=== PATIENT | male | born 1945 | race Caucasian/White ===

== ENCOUNTER 2022-12-19 14:54 | Outpatient (CLI) | payer MEDICARE, SELFPAY | END 2022-12-19 14:55 | disposition home or self-care (01) | PROVIDERS: Visit Provider Nurse Practitioner | DX: C61 Malignant neoplasm of prostate (principal) | CPT/HCPCS: 72195 ==

== ENCOUNTER 2024-12-03 17:12 | Emergency (ER) | payer MEDICARE, SELFPAY ==
[2024-12-03 17:34] VITALS: BP 139/78; PULSE 76; RESP 16; TEMP 37.3; O2SAT 95; BMI 23.7
[2024-12-03 19:25] VITALS: BP 145/81; PULSE 80; RESP 18; TEMP 37.1; O2SAT 92
--- OUTSIDE RECORDS SUMMARY | 2024-12-03 19:29 | XMS_ITS | Clinical Summary ---
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 INFORMATION SYSTEMS AUDITOR [facility] % Basophils 1 % 09/29/2024 7:06 AM INFORMATION SYSTEMS AUDITOR [facility] % Immature Granulocytes 0 % 09/29/2024 7:06 AM INFORMATION SYSTEMS AUDITOR [facility] NRBCs per 100 WBC 0 <1 /100 024 7:06 AM INFORMATION SYSTEMS AUDITOR [facility] Absolute Neutrophils 4.3 1.6 - 8.3 10e3/uL 09/29/2024 7:06 AM INFORMATION SYSTEMS AUDITOR [facility] Absolute Lymphocytes 1.0 0.8 - 5.3 10e3/uL 09/29/2024 7:06 AM INFORMATION SYSTEMS AUDITOR [facility] Absolute Monocytes 0.7 0.0 - 1.3 10e3/uL 09/29/2024 7:06 AM INFORMATION SYSTEMS AUDITOR [facility] Absolute Eosinophils 0.6 0.0 - 0.7 10e3/uL 09/29/2024 7:06 AM INFORMATION SYSTEMS AUDITOR [facility] Absolute Basophils 0.1 0.0 - 0.2 10e3/uL 09/29/2024 7:06 AM INFORMATION SYSTEMS AUDITOR [facility] Absolute Immature Granulocytes 0.0 <=0.4 10e3/uL 09/29/2024 7:06 AM INFORMATION SYSTEMS AUDITOR [facility] Absolute NRBCs 0.0 10e3/uL 09/29/2024 7:06 AM INFORMATION SYSTEMS AUDITOR [facility] Blood TOPOGRAPHY UNKNOWN / Unknown Venipuncture / Unknown 09/29/2024 6:56 AM INFORMATION SYSTEMS AUDITOR 09/29/2024 7:02 AM INFORMATION SYSTEMS AUDITOR Marie Alex MD LAB - BLOOD ORDERABLES Fi nal Result [facility] [address] Lab (1st floor, no room number) [place] [address] * CK total (09/28/2024 7:32 AM INFORMATION SYSTEMS AUDITOR) Only the most recent of5 resultswithin the time period is included. CK 67 39 - 308 U/L 09/28/2024 8:15 AM INFORMATION SYSTEMS AUDITOR [facility] Blood STRUCTURE OF RIGHT UPPER LIMB / Unknown Venipuncture / Unknown 09/28/2024 7:32 AM INFORMATION SYSTEMS AUDITOR 09/28/2024 7:54 AM INFORMATION SYSTEMS AUDITOR Marie Alex MD LAB - BLOOD ORDERABLES Fi nal Result [facility] [address] Lab (1st floor, no room number) [place] [address] * Phosphorus (09/26/2024 6:55 AM INFORMATION SYSTEMS AUDITOR) Only the most recent of2 resultswithin the time period is included. Phosphorus 3.1 2.5 - 4.5 mg/dL 09/26/2024 7:36 AM INFORMATION SYSTEMS AUDITOR [facility] Blood STRUCTURE OF RIGHT UPPER LIMB / Unknown Venipuncture / Unknown 09/26/2024 6:55 AM INFORMATION SYSTEMS AUDITOR 09/26/2024 6:58 AM INFORMATION SYSTEMS AUDITOR us Marie Alex MD LAB - BLOOD ORDERABLES Fi nal Result [facility] [address] Lab (1st floor, no room number) [place] [address] * Magnesium (09/26/2024 6:55 AM INFORMATION SYSTEMS AUDITOR) Only the most recent of2 resultswithin the time period is included. Magnesium 2.2 1.7 - 2.3 mg/dL 09/26/2024 7:36 AM INFORMATION SYSTEMS AUDITOR LABORATORY Blood STRUCTURE OF RIGHT UPPER LIMB / Unknown Venipuncture / Unknown 09/26/2024 6:55 AM INFORMATION SYSTEMS AUDITOR 09/26/2024 6:58 AM INFORMATION SYSTEMS AUDITOR us Marie Alex MD LAB - BLOOD ORDERABLES Fi nal Result Performing Organization Address City/[facility]/ZIP Co de Phone Number [facility] [address] Lab (1st floor, no room number) [place] [address] * [place] level (09/25/2024 7:56 PM INFORMATION SYSTEMS AUDITOR) Only the most recent of2 resultswithin the time period is included. [place] 0.92 0.60 - 1.20 mmol/L 09/25/2024 8:45 PM INFORMATION SYSTEMS AUDITOR LABORATORY Comment: Therapeutic: 0.60 - 1.20 mmol/L; Toxic: >2.00 mmol/L Blood STRUCTURE OF LEFT UPPER LIMB / Unknown Venipuncture / Unknown 09/25/2024 7:56 PM INFORMATION SYSTEMS AUDITOR 09/25/2024 8:00 PM INFORMATION SYSTEMS AUDITOR us Marie Alex MD LAB - BLOOD ORDERABLES Fi nal Result [facility] [address] Lab (1st floor, no room number) [place] [address] * Hepatic panel (09/24/2024 5:54 AM INFORMATION SYSTEMS AUDITOR) Protein Total 6.9 6.4 - 8.3 g/dL 09/24/2024 10:47 AM INFORMATION SYSTEMS AUDITOR LABORATORY Albumin 4.2 3.5 - 5.2 g/dL 09/24/2024 10:47 AM INFORMATION SYSTEMS AUDITOR [facility] Bilirubin Total 0.4 <=1.2 mg/dL 09/24/2024 10:47 AM INFORMATION SYSTEMS AUDITOR [facility] Alkaline Phosphatase 105 40 - 150 U/L 09/24/2024 10:47 AM INFORMATION SYSTEMS AUDITOR [facility] AST 40 0 - 45 U/L 09/24/2024 10:47 AM INFORMATION SYSTEMS AUDITOR [facility] ALT 28 0 - 70 U/L 09/24/2024 10:47 AM INFORMATION SYSTEMS AUDITOR LABORATORY Bilirubin Direct <0.20 0.00 - 0.30 mg/dL 09/24/2024 10:47 AM INFORMATION SYSTEMS AUDITOR LABORATORY Blood STRUCTURE OF LEFT HAND / Unknown Venipuncture / Unknown 09/24/2024 5:54 AM INFORMATION SYSTEMS AUDITOR 09/24/2024 6:06 AM INFORMATION SYSTEMS AUDITOR us Marie Alex MD LAB - BLOOD ORDERABLES Fi nal Result LABORATORY [facility] Lab [address] Lab (1st floor, no room number) [place] [address], [facility] * Vitamin B12 (09/24/2024 5:54 AM INFORMATION SYSTEMS AUDITOR) Pathologist [facility] Vitamin B12 441 232 - 1,245 pg/mL 09/24/2024 11:44 PM INFORMATION SYSTEMS AUDITOR [facility] Blood STRUCTURE OF LEFT HAND / Unknown Venipuncture / Unknown 09/24/2024 5:54 AM INFORMATION SYSTEMS AUDITOR 09/24/2024 6:06 AM INFORMATION SYSTEMS AUDITOR us Mani Monterroso MD LAB - BLOOD ORDERABLES Fi nal Result [facility] LAB[facility]ATORY [facility] [address] [facility], [address] [place] [address] * MR Brain w/o & w Contrast (09/23/2024 9:57 AM INFORMATION SYSTEMS AUDITOR) Anatomical Region Laterality Modality Head, SUBRAD MR NEURO, UMP MR NEURO, RAD MR Magnetic Resonance Impressions 09/23/2024 10:45 AM INFORMATION SYSTEMS AUDITOR IMPRESSION: 1. No acute intracranial finding. No evidence for recent ischemia, intracranial hemorrhage, or mass. 2. At most mild to moderate volume loss. 3. Otherwise unremarkable brain MRI for age. DOYLE PRADO MD SYSTEM ID: [id number] Narrative 09/23/2024 10:45 AM INFORMATION SYSTEMS AUDITOR MR BRAIN WITHOUT AND WITH CONTRAST 09/23/2024 9:57 AM INDICATION: Confusion. TECHNIQUE: Noncontrast and contrast enhanced MRI of the brain. CONTRAST: 8 mL Gadavist COMPARISON: Head CT 09/20/2024 FINDINGS: There is no restricted diffusion. Cyst left maxillary sinus. Mild mucosal thickening ethmoid air cells. Mastoid air cells appear free from significant disease. Intraorbital contents are unremarkable. Mild to moderate cerebral and mild cerebellar volume loss. No hydrocephalus. Intracranial flow voids are intact. There is no mass effect, midline shift, or extraaxial collection. Signal intensity of the brain parenchyma is within normal limits for the patient's age. No evidence for acute or chronic intracranial blood products. Procedure Note Doyle Prado MD - 09/23/2024 MR BRAIN WITHOUT AND WITH CONTRAST 09/23/2024 9:57 AM INDICATION: Confusion. TECHNIQUE: Noncontrast and contrast enhanced MRI of the brain. CONTRAST: 8 mL Gadavist COMPARISON: Head CT 09/20/2024 FINDINGS: There is no restricted diffusion. Cyst left maxillary sinus. Mild mucosal thickening ethmoid air cells. Mastoid air cells appear free from significant disease. Intraorbital contents are unremarkable. Mild to moderate cerebral and mild cerebellar volume loss. No hydrocephalus. Intracranial flow voids are intact. There is no mass effect, midline shift, or extraaxial collection. Signal intensity of the brain parenchyma is within normal limits for the patient's age. No evidence for acute or chronic intracranial blood products. IMPRESSION: 1. No acute intracranial finding. No evidence for recent ischemia, intracranial hemorrhage, or mass. 2. At most mild to moderate volume loss. 3. Otherwise unremarkable brain MRI for age. DOYLE PRADO MD SYSTEM ID: [id number] Torres Centeno MD IMG MRI ORDERABLES Final Resu lt * (ABNORMAL) Glucose by meter (09/20/2024 7:53 PM INFORMATION SYSTEMS AUDITOR) GLUCOSE BY METER POCT 111(H) 70 - 99 mg/dL 09/20/2024 8:05 PM INFORMATION SYSTEMS AUDITOR LABORATORY POC Blood, Capillary BLOOD SPECIMEN / Unknown 09/20/2024 7:53 PM INFORMATION SYSTEMS AUDITOR 09/20/2024 8:05 PM INFORMATION SYSTEMS AUDITOR Torres Centeno MD LAB - BEAKER POCT Final Resul t LABORATORY [facility] [address] [facility] Lab (1st floor, no room number) [place] [address] * CT Cervical Spine w/o Contrast (09/20/2024 10:59 AM INFORMATION SYSTEMS AUDITOR) Anatomical Region Laterality Modality Spine, SUBRAD CT NEURO, SUBR AD CT NEURO, UMP CT SPINE, RAD CT Computed Tomography Impressions 09/20/2024 11:22 AM INFORMATION SYSTEMS AUDITOR IMPRESSION: 1. Slight depression and superior vertebral body sclerosis at T1 and T2 could reflect subtle endplate fractures of uncertain age. Consider MRI. 2. No acute cervical spine fracture. DOYLE PRADO MD SYSTEM ID: [id number] Narrative 09/20/2024 11:22 AM INFORMATION SYSTEMS AUDITOR CT CERVICAL SPINE WITHOUT CONTRAST 09/20/2024 10:59 AM INDICATION: Fall, neck pain. TECHNIQUE: CT scan of the cervical spine without contrast. Dose reduction techniques were used. COMPARISON: None FINDINGS: 2 mm anterolisthesis of C3 on C4 and 3 mm anterolisthesis of C5 on C6 are favored to be degenerative. Normal cervical vertebral body heights. Slight depression and superior vertebral body sclerosis at T1 and T2 could reflect subtle endplate fractures of uncertain age. No definite acute cervical spine fracture. No prevertebral soft tissue swelling. Multilevel degenerative changes without evidence for high-grade spinal canal narrowing. Procedure Note Doyle Prado MD - 09/20/2024 CT CERVICAL SPINE WITHOUT CONTRAST 09/20/2024 10:59 AM INDICATION: Fall, neck pain. TECHNIQUE: CT scan of the cervical spine without contrast. Dose reduction techniques were used. COMPARISON: None FINDINGS: 2 mm anterolisthesis of C3 on C4 and 3 mm anterolisthesis of C5 on C6 are favored to be degenerative. Normal cervical vertebral body heights. Slight depression and superior vertebral body sclerosis at T1 and T2 could reflect subtle endplate fractures of uncertain age. No definite acute cervical spine fracture. No prevertebral soft tissue swelling. Multilevel degenerative changes without evidence for high-grade spinal canal narrowing. IMPRESSION: 1. Slight depression and superior vertebral body sclerosis at T1 and T2 could reflect subtle endplate fractures of uncertain age. Consider MRI. 2. No acute cervical spine fracture. DOYLE PRADO MD SYSTEM ID: [id number] us Jake Stubbs MD IMG CT ORDERABLES Final R esult * Head CT w/o contrast (09/20/2024 10:59 AM INFORMATION SYSTEMS AUDITOR) Anatomical Region Laterality Modality Head, SUBRAD CT NEURO, SUBRA D CT NEURO, UMP CT NEURO, RAD CT Computed Tomography Impressions 09/20/2024 11:07 AM INFORMATION SYSTEMS AUDITOR IMPRESSION: No intracranial hemorrhage, mass, or definite CT evidence of recent ischemia. DOYLE PRADO MD SYSTEM ID: [id number] Narrative 09/20/2024 11:07 AM INFORMATION SYSTEMS AUDITOR CT HEAD W/O CONTRAST 09/20/2024 10:59 AM INDICATION: unwitnessed fall, confusion TECHNIQUE: CT scan of the head without contrast. Dose reduction techniques were used. CONTRAST: None. COMPARISON: None FINDINGS: No intracranial hemorrhage, extraaxial collection, mass effect or CT evidence of acute infarct. Minor presumed chronic small vessel ischemic changes. Mild generalized volume loss most pronounced in the temporal lobes. The ventricles are proportional to the sulci. Osseous structures are intact. Unremarkable orbits. Cyst left maxillary sinus. Clear mastoid air cells. Procedure Note Doyle Prado MD - 09/20/2024 CT HEAD W/O CONTRAST 09/20/2024 10:59 AM INDICATION: unwitnessed fall, confusion TECHNIQUE: CT scan of the head without contrast. Dose reduction techniques were used. CONTRAST: None. COMPARISON: None FINDINGS: No intracranial hemorrhage, extraaxial collection, mass effect or CT evidence of acute infarct. Minor presumed chronic small vessel ischemic changes. Mild generalized volume loss most pronounced in the temporal lobes. The ventricles are proportional to the sulci. Osseous structures are intact. Unremarkable orbits. Cyst left maxillary sinus. Clear mastoid air cells. IMPRESSION: No intracranial hemorrhage, mass, or definite CT evidence of recent ischemia. DOYLE PRADO MD SYSTEM ID: [id number] us Jake Stubbs MD IMG CT ORDERABLES Final R esult * UA with Microscopic reflex to Culture (09/20/2024 9:56 AM INFORMATION SYSTEMS AUDITOR) Color Urine Light Yellow Colorless, Straw, Light Yellow, Yellow 09/20/2024 10:15 AM [facility] Appearance Urine Clear Clear 09/20/20 24 10:15 AM [facility] Glucose Urine Negative Negative mg/dL 09/20/2024 10:15 AM [facility] Bilirubin Urine Negative Negative 10:15 AM [facility] Ketones Urine Negative Negative mg/dL 09/20/2024 10:15 AM [facility] Specific [place] Urine 1.011 1.003 - 1.035 09/20/2024 10:15 AM [facility] Blood Urine Negative Negative 09/20/2024 10:15 AM [facility] pH Urine 6.5 5.0 - 7.0 09/20/2024 10:15 AM [facility] Protein Albumin Urine Negative Negative mg/dL 09/20/2024 10:15 AM [facility] Urobilinogen Urine Normal Normal, 2.0 mg/dL 09/20/2024 10:15 AM [facility] Nitrite Urine Negative Negative 09/20/2024 10:15 AM [facility] Leukocyte Esterase Urine Negative Negative 09/20/2024 10:15 AM [facility] RBC Urine <1 <=2 /HPF 09/20/2024 10:15 AM [facility] WBC Urine <1 <=5 /HPF 09/20/2024 10:15 AM [facility] Urine URINE SPECIMEN OBTAINED BY CLEAN CATCH PROCEDURE / Unknown Non-blood Collection / Unknown 09/20/2024 9:56 AM INFORMATION SYSTEMS AUDITOR 09/20/2024 10:00 AM INFORMATION SYSTEMS AUDITOR Narrative LABORATORY - 09/20/2024 10:15 AM INFORMATION SYSTEMS AUDITOR Urine Culture not indicated Jake Stubbs MD LAB - URINE ORDERABLES Fi nal Result LABORATORY [facility] [address] Lab (1st floor, no room number) [place] [address] * TSH with free T4 reflex (09/20/2024 9:56 AM INFORMATION SYSTEMS AUDITOR) TSH 0.34 0.30 - 4.20 uIU/mL 09/20/2024 7:07 PM INFORMATION SYSTEMS AUDITOR LABORATORY Blood BLOOD SPECIMEN / Unknown Venipuncture / Unknown 09/20/2024 9:56 AM INFORMATION SYSTEMS AUDITOR 09/20/2024 10:00 AM INFORMATION SYSTEMS AUDITOR Minnie Bernard PA-C LAB - BLOOD ORDERABLES F inal Result LABORATORY [facility] Lab [address] Lab (1st floor, no room number) [place] [phone] * EKG 12-lead, tracing only (09/20/2024 9:39 AM INFORMATION SYSTEMS AUDITOR) Systolic Blood Pressure mmHg RADIOLOGY RESULTS Diastolic Blood Pressure mmHg RADIOLOGY RESULTS Ventricular Rate 81 BPM RAD IOLOGY RESULTS Atrial Rate 81 BPM RADIOLOG Y RESULTS VT Interval 204 ms RADIOLOG Y RESULTS QRS Duration 126 ms RADIOLO GY RESULTS QT 428 ms RADIOLOGY RESULTS QTc 497 ms RADIOLOGY RESULTS P [place] 63 degrees RADIOLOGY RESULTS R AXIS -80 degrees RADIOLOGY RESULTS T [place] 54 degrees RADIOLOGY RESULTS Interpretation ECG Sinus rhythm Right bundle branch block Left anterior fascicular block Bifascicular block Abnormal ECG No previous ECGs available Unconfirmed report - interpretation of this ECG is computer generated - see medical record for final interpretation Confirmed by - EMERGENCY ROOM, PHYSICIAN ([id number]), online editor Miko Cruz ([id number]) on 09/20/2024 9:46:28 AM RADIOLOGY RESULTS 09/20/2024 9:39 AM INFORMATION SYSTEMS AUDITOR 09/20/2024 9:46 AM INFORMATION SYSTEMS AUDITOR us Jake Stubbs MD ECG ORDERABLES Edited Re sult - Final RADIOLOGY RESULTS from Last 3 Months Insurance MEDICARE MEDICARE Advance Directives For more information, please contact: [phone] Documents on File Type Date Recorded Patient Neurosurgical Physician Assistant Expl anation Advance Directives and [employer] iqbal Will 10/06/2024 POLST 06-11-2024 * No CPR- Do NOT Intubate (Latest Code Status on File) Date Activated Date Inactivated Comments 10/01/2024 12:25 PM Question Answer Comments Code status determined by: Discussion with patie nt/ legal decision maker * No CPR- Do NOT Intubate Date Activated Date Inactivated Comments 09/26/2024 12:03 PM 10/01/2024 12:25 PM NO basic or advanced life-sustaining interventions are performed. Per 05/2024 POLST. Discussed with adrián Zhong 09/26/24 and in agreement with DNR/DNI status. Question Answer Comments Code status determined by: AD/POLST (patient dec ision maker unavailable) * Full Code Date Activated Date Inactivated Comments 09/20/2024 7:35 PM 09/26/2024 12:03 PM All basic and advanced life-sustaining interventions are performed as appropriate Question Answer Comments Code status determined by: Discussion with patie nt/ legal decision maker Care Teams Freight Unloader Relationship Specialty Start Date End Date Ashlyn Moody APRN [employer] MACHINE REPAIRER [facility] [address] [place] [address] PCP - General Nurse Practitioner Primary Care 08/10/24
--- OUTSIDE RECORDS SUMMARY | 2024-12-03 19:29 | XMS_ITS | Referral Summary ---
Author Organization [place] Address [facility] [place] [address] Care Team Providers Care Bag Grader Name Role Phone Ashlyn Moody GORDO HASKINS Primary Care Provider Encounters Date Type Department Care Team Description 10/06/2024 Documentation Only [facility] [address] [facility] [address] [place] [address] Vane Escobar Advance Care Planning 09/20/2024 9:03 AM CEMENT [facility]ON APPRENTICE - 10/01/2024 4:21 PM [facility] Hospital Encounter [facility] Observation Dept [address] [place] [id number] Jake Stubbs MD Young, Torres Connor MD Bipolar disorder, current episode mixed, mild (H) (Primary Dx); Fall, initial encounter; Skin tear of elbow without complication, unspecified laterality, initial encounter; History of bipolar disorder; Vascular dementia with agitation, unspecified dementia severity (H); 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 10/02/20 24 027 Active OLANZapine zydis (ZYPREXA) 5 MG ODTIndications:B ehavior related to cognitive impairment Take 1 tablet (5 mg) by mouth 2 times daily as needed for agitation. 12 tablet 10/01/20 24 Active polyethylene glycol (MIRALAX) 17 GM/Dose powderIndication [...] capsule (0.4 mg) by mouth daily. 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 024 Traumatic brain injury 09/20/2024 Bipolar affective disorder, currently active 02/2024 Fall, initial encounter 09/20/2024 Skin tear of elbow without c omplication, unspecified laterality, initial encounter 09/20/2024 Social History Tobacco Use Types Packs/Day Years [...] in an abandoned building, in an overnight chcf, or couch-surfing.) Patient unable to answer 09/23/2024 [...] Comments Blood Pressure 127/71 10/01/2024 4:00 PM CEMENT [facility]ON APPRENTICE Pulse 78 10/01/2024 4:00 PM CEMENT MASON APPRENTICE Temperature 36.3 C (97.4 F) 10/01/2024 4:00 PM CEMENT [facility]ON APPRENTICE Respiratory Rate 16 10/01/2024 4:00 PM CEMENT MASON APPRENTICE Oxygen Saturation 96% 10/01/2024 4:00 PM CEMENT MASON APPRENTICE Inhaled Oxygen Concentration - - Weight 80.8 kg (178 lb 2.1 oz) 09/20/2024 7:32 P M CEMENT MASON APPRENTICE Height 182.9 cm (6') 09/20/2024 7:32 PM CEMENT [facility]ON APPRENTICE Body Mass Index 24.16 09/20/2024 7:32 PM CEMENT [facility]ON APPRENTICE Plan of Treatment Not on file Procedures Procedure Name Priority Date/Time Associated Diagnosis Comments BASIC METABOLIC PANEL (OUTREACH) Routine 10/08/2024 9:38 AM CEMENT [facility]ON APPRENTICE Anemia, unspecified TRIP CHARGE - LAB ONLY Routine 10/08/2024 9:38 AM CEMENT [facility]ON APPRENTICE Anemia, unspecified BASIC METABOLIC PANEL NO GLUCOSE (OUTREACH) Routine 10/08/2024 9:38 AM CEMENT MASON APPRENTICE Anemia, unspecified GLUCOSE (OUTREACH) Routine 10/08/2024 9: 38 AM CEMENT MASON APPRENTICE Anemia, unspecified CBC WITH PLATELETS Routine 10/08/2024 9: 38 AM CEMENT MASON APPRENTICE Anemia, unspecified QUANTIFERON-TB GOLD PLUS Routine 10/04/2024 5:37 AM CEMENT MASON APPRENTICE Encounter for screening for respiratory tuberculosis TRIP CHARGE - LAB ONLY Routine 10/04/2024 5:37 AM CEMENT MASON APPRENTICE Encounter for screening for respiratory tuberculosis QUANTIFERON TB GOLD PLUS Routine 10/04/2024 5:37 AM CEMENT MASON APPRENTICE Encounter for screening for respiratory tuberculosis QUANTIFERON TB GOLD PLUS PURPLE TUBE Routine 10/04/2024 5:37 AM CEMENT MASON APPRENTICE Encounter for screening for respiratory tuberculosis QUANTIFERON TB GOLD PLUS YELLOW TUBE Routine 10/04/2024 5:37 AM CEMENT MASON APPRENTICE Encounter for screening for respiratory tuberculosis QUANTIFERON TB GOLD PLUS GREEN TUBE Routine 10/04/2024 5:37 AM CEMENT MASON APPRENTICE Encounter for screening for respiratory tuberculosis QUANTIFERON TB GOLD PLUS EASTMAN TUBE Routine 10/04/2024 5:37 AM CEMENT MASON APPRENTICE Encounter for screening for respiratory tuberculosis BASIC METABOLIC PANEL Routine 10/01/2024 5:51 AM CEMENT MASON APPRENTICE PLATELET COUNT Routine 09/30/2024 6:59 AM CEMENT MASON APPRENTICE CBC WITH PLATELETS & DIFFERENTIAL Routine 09/29/2024 6:56 AM CEMENT MASON APPRENTICE CBC WITH PLATELETS AND DIFFERENTIAL Routine 09/29/2024 6:56 AM CEMENT MASON APPRENTICE BASIC METABOLIC PANEL Routine 09/29/2024 6:56 AM CEMENT MASON APPRENTICE CBC WITH PLATELETS & DIFFERENTIAL Routine 09/28/2024 7:32 AM CEMENT MASON APPRENTICE CBC WITH PLATELETS AND DIFFERENTIAL Routine 09/28/2024 7:32 AM CEMENT MASON APPRENTICE CK TOTAL Routine 09/28/2024 7:32 AM CEMENT MASON APPRENTICE BASIC METABOLIC PANEL Routine 09/28/2024 7:32 AM CEMENT MASON APPRENTICE BASIC METABOLIC PANEL Routine 09/27/2024 6:45 AM CEMENT MASON APPRENTICE PLATELET COUNT Routine 09/27/2024 6:45 AM CEMENT MASON APPRENTICE CBC WITH PLATELETS & DIFFERENTIAL Routine 09/26/2024 6:55 AM CEMENT MASON APPRENTICE CBC WITH PLATELETS AND DIFFERENTIAL Routine 09/26/2024 6:55 AM CEMENT MASON APPRENTICE CK TOTAL Routine 09/26/2024 6:55 AM CEMENT MASON APPRENTICE PHOSPHORUS Routine 09/26/2024 6:55 AM CEMENT MASON APPRENTICE MAGNESIUM Routine 09/26/2024 6:55 AM CEMENT MASON APPRENTICE BASIC METABOLIC PANEL Routine 09/26/2024 6:55 AM CEMENT MASON APPRENTICE LITHIUM LEVEL Timed 09/25/2024 7:56 PM CEMENT MASON APPRENTICE CBC WITH PLATELETS & DIFFERENTIAL Routine 09/25/2024 6:58 AM CEMENT MASON APPRENTICE CBC WITH PLATELETS AND DIFFERENTIAL Routine 09/25/2024 6:58 AM CEMENT MASON APPRENTICE CK TOTAL Routine 09/25/2024 6:58 AM CEMENT MASON APPRENTICE PHOSPHORUS Routine 09/25/2024 6:58 AM CEMENT MASON APPRENTICE MAGNESIUM Routine 09/25/2024 6:58 AM CEMENT MASON APPRENTICE BASIC METABOLIC PANEL Routine 09/25/2024 6:58 AM CEMENT MASON APPRENTICE CBC WITH PLATELETS & DIFFERENTIAL Routine 09/24/2024 5:54 AM CEMENT MASON APPRENTICE VITAMIN B12 Add-On 09/24/2024 5:54 AM CEMENT MASON APPRENTICE HEPATIC FUNCTION PANEL Add-On 09/24/2024 5:54 AM CEMENT MASON APPRENTICE CBC WITH PLATELETS AND DIFFERENTIAL Routine 09/24/2024 5:54 AM CEMENT MASON APPRENTICE BASIC METABOLIC PANEL Routine 09/24/2024 5:54 AM CEMENT MASON APPRENTICE MR BRAIN W/O & W CONTRAST Routine 09/23/2024 9:57 AM CEMENT MASON APPRENTICE BASIC METABOLIC PANEL Routine 09/22/2024 6:23 AM CEMENT MASON APPRENTICE CK TOTAL Routine 09/21/2024 5:52 AM CEMENT MASON APPRENTICE CBC WITH PLATELETS Routine 09/21/2024 5: 52 AM CEMENT MASON APPRENTICE BASIC METABOLIC PANEL Routine 09/21/2024 5:52 AM CEMENT [facility]ON APPRENTICE GLUCOSE BY METER Routine 09/20/2024 7:53 PM CEMENT MASON APPRENTICE LITHIUM LEVEL STAT 09/20/2024 12:[address] [facility] CERVICAL SPINE W/O CONTRAST STAT 09/20/2024 10:59 AM [facility] [address] HEAD W/O CONTRAST STAT 09/20/2024 10:59 AM CEMENT MASON APPRENTICE CBC WITH PLATELETS & DIFFERENTIAL STAT 09/20/2024 9:56 AM CEMENT MASON APPRENTICE TSH WITH FREE T4 REFLEX Add-On 09/20/2024 9:56 AM CEMENT MASON APPRENTICE CBC WITH PLATELETS AND DIFFERENTIAL STAT 09/20/2024 9:56 AM CEMENT MASON APPRENTICE CK TOTAL STAT 09/20/2024 9:56 AM CEMENT [facility]ON APPRENTICE BASIC METABOLIC PANEL STAT 09/20/2024 9:56 AM CEMENT MASON APPRENTICE ROUTINE UA WITH MICROSCOPIC REFLEX TO CULTURE STAT 09/20/2024 9:56 AM CEMENT MASON APPRENTICE EKG 12-LEAD, TRACING ONLY STAT 09/20/2024 9:39 AM CEMENT [facility]ON APPRENTICE from Last 3 Months Results * Trip Charge - LAB ONLY (10/08/2024 9:38 AM CEMENT [facility]ON APPRENTICE) Only the most recent of2 resultswithin the time period is included. Other TOPOGRAPHY UNKNOWN / Unknown Billing only / Unknown 10/08/2024 9:38 AM CEMENT [facility]ON APPRENTICE 10/08/2024 12:53 PM CEMENT MASON APPRENTICE us Wendy Avina MD LAB CHARGE PERFORMABLES Final Result Performing Organization Address City/State/[facility] Co de Phone Number [facility] [address] [place] [address] * (ABNORMAL) Basic Metabolic Panel No Glucose (OUTREACH) (10/08/2024 9:38 AM CEMENT [facility]ON APPRENTICE) Sodium 141 135 - 145 mmol/L 10/08/2024 3:09 PM CEMENT MASON APPRENTICE [facility] Potassium 4.2 3.4 - 5.3 mmol/L 10/08/2024 3:09 PM CEMENT MASON APPRENTICE [facility] Chloride 108(H) 98 - 107 mmol/L 10/08/2024 3:09 PM CEMENT MASON APPRENTICE [facility] Carbon Dioxide (CO2) 24 22 - 29 mmol/L 10/08/2024 3:09 PM CEMENT MASON APPRENTICE [facility] Anion Gap 9 7 - 15 mmol/L 10/08/2024 3:09 PM CEMENT MASON APPRENTICE [facility] Urea Nitrogen 14.4 8.0 - 23.0 mg/dL 10/08/2024 3:09 PM CEMENT MASON APPRENTICE [facility] Creatinine 1.33(H) 0.67 - 1.17 mg/dL 10/08/2024 3:09 PM CEMENT MASON APPRENTICE [facility] GFR Estimate 54(L) >60 mL/min/1.7 3m2 10/08/2024 3:09 PM CEMENT MASON APPRENTICE [facility] Calcium 9.3 8.8 - 10.4 mg/dL 10/08/2024 3:09 PM CEMENT MASON APPRENTICE [facility] Comment:Reference intervals for this test were updated on 06/01/2024 to reflect our healthy population more accurately. There may be differences in the flagging of prior results with similar values performed with this method. Those prior results can be interpreted in the context of the updated reference intervals. Blood STRUCTURE OF RIGHT UPPER LIMB / Unknown Venipuncture / Unknown 10/08/2024 9:38 AM CEMENT MASON APPRENTICE 10/08/2024 12:53 PM CEMENT MASON APPRENTICE us Wendy Avina MD LAB - BLOOD ORDERABLES Final Result [facility] [place] [facility] [address] [facility], [address] * Glucose (OUTREACH) (10/08/2024 9:38 AM CEMENT MASON APPRENTICE) Glucose 73 70 - 99 mg/dL 10/08/2024 6:28 PM CEMENT MASON APPRENTICE [facility] Blood STRUCTURE OF RIGHT UPPER LIMB / Unknown Venipuncture / Unknown 10/08/2024 9:38 AM CEMENT MASON APPRENTICE 10/08/2024 12:53 PM CEMENT MASON APPRENTICE us Wendy Avina MD LAB - BLOOD ORDERABLES Final Result [facility] [place] [facility] [address] [facility], [address] * (ABNORMAL) CBC with platelets (10/08/2024 9:38 AM CEMENT MASON APPRENTICE) Only the most recent of2 resultswithin the time period is included. WBC Count 6.9 4.0 - 11.0 10e3/uL 10/08/2024 2:26 PM CEMENT MASON APPRENTICE [facility] RBC Count 3.45(L) 4.40 - 5.90 10e6/uL 10/08/2024 2:26 PM CEMENT MASON APPRENTICE [facility] Hemoglobin 11.5(L) 13.3 - 17.7 g/dL 10/08/2024 2:26 PM CEMENT MASON APPRENTICE [facility] Hematocrit 37.8(L) 40.0 - 53.0 % 10/08/2024 2:26 PM CEMENT MASON APPRENTICE [facility] MCV 110(H) 78 - 100 fL 10/08/2024 2:26 PM CEMENT MASON APPRENTICE [facility] MCH 33.3(H) 26.5 - 33.0 pg 10/08/2024 2:26 PM CEMENT MASON APPRENTICE [facility] MCHC 30.4(L) 31.5 - 36.5 g/dL 10/08/2024 2:26 PM CEMENT MASON APPRENTICE [facility] RDW 13.6 10.0 - 15.0 % 10/08/2024 2:26 PM CEMENT MASON APPRENTICE [facility] Platelet Count 305 150 - 450 10e3/uL 10/08/2024 2:26 PM CEMENT MASON APPRENTICE [facility] Blood STRUCTURE OF RIGHT UPPER LIMB / Unknown Venipuncture / Unknown 10/08/2024 9:38 AM CEMENT MASON APPRENTICE 10/08/2024 12:53 PM CEMENT MASON APPRENTICE us Wendy Avina MD LAB - BLOOD ORDERABLES Final Result [facility] [place] [facility] [address] [facility], [address] [place] [phone] * Quantiferon TB Gold Plus (10/04/2024 5:37 AM CEMENT MASON APPRENTICE) [facility] Quantiferon-TB Gold Plus Negative Negative 10/05/2024 1:20 PM [facility] CORE/PROT/END O Comment: No interferon gamma [...] Nil Value 0.00 IU/mL 10/05/2024 1:20 PM CEMENT MASON APPRENTICE SPECIALTY CORE/PROT/END O TB2 Ag minus Nil Value 0.02 IU/mL 10/05/2024 1:20 PM CEMENT MASON APPRENTICE SPECIALTY CORE/PROT/END O Mitogen minus Nil Result 0.52 IU/mL 10/05/2024 1:20 PM CEMENT MASON APPRENTICE [facility] CORE/PROT/END O Nil Result 0.02 IU/mL 10/05/2024 1:20 PM CEMENT MASON APPRENTICE [facility] CORE/PROT/END O Blood STRUCTURE OF LEFT UPPER LIMB / Unknown Venipuncture / Unknown 10/04/2024 5:37 AM CEMENT MASON APPRENTICE 10/04/2024 9:50 AM CEMENT MASON APPRENTICE us Wendy Avina MD LAB - MICRO GENERAL ORDERABLE S Final Result [facility] CORE/PROT/ENDO [facility] Specialty Core/Prot/Endo [address] [facility], [address] * Quantiferon TB Gold Plus Purple Tube (10/04/2024 5:37 AM CEMENT MASON APPRENTICE) Quantiferon Mitogen 0.54 IU/mL 10/05/2024 12:25 PM CEMENT MASON APPRENTICE [facility] CORE/PROT/ENDO Blood STRUCTURE OF LEFT UPPER LIMB / Unknown Venipuncture / Unknown 10/04/2024 5:37 AM CEMENT MASON APPRENTICE 10/04/2024 9:50 AM CEMENT MASON APPRENTICE us Wendy Avina MD LAB - MICRO GENERAL ORDERABLE S Final Result [facility] SPECIALTY CORE/PROT/ENDO Specialty Core/Prot/Endo [address] [facility], [address] * Quantiferon TB Gold Plus Yellow Tube (10/04/2024 5:37 AM CEMENT MASON APPRENTICE) Quantiferon TB2 Tube 0.04 10/05/2024 12:27 PM CEMENT MASON APPRENTICE [facility] CORE/PROT/ENDO Blood STRUCTURE OF LEFT UPPER LIMB / Unknown Venipuncture / Unknown 10/04/2024 5:37 AM CEMENT MASON APPRENTICE 10/04/2024 9:50 AM CEMENT MASON APPRENTICE us Wendy Avina MD LAB - MICRO GENERAL ORDERABLE S Final Result [facility] SPECIALTY CORE/PROT/ENDO [facility] Specialty Core/Prot/Endo [address] [facility], [address] * Quantiferon TB Gold Plus Green Tube (10/04/2024 5:37 AM CEMENT MASON APPRENTICE) Quantiferon TB1 Tube 0.02 IU/mL 10/05/2024 12:40 PM CEMENT MASON APPRENTICE [facility] SPECIAL[facility] CORE/PROT/ENDO Blood STRUCTURE OF LEFT UPPER LIMB / Unknown Venipuncture / Unknown 10/04/2024 5:37 AM CEMENT MASON APPRENTICE 10/04/2024 9:50 AM CEMENT MASON APPRENTICE us Wendy Avina MD LAB - MICRO GENERAL ORDERABLE S Final Result Performing Organization Address City/[facility]/ZIP Co de Phone Number [facility] SPECIALTY CORE/PROT/ENDO Specialty Core/Prot/Endo [address] [facility], [address] * Quantiferon TB Gold Plus [place] Tube (10/04/2024 5:37 AM CEMENT MASON APPRENTICE) Quantiferon Nil Tube 0.02 IU/mL 10/05/2024 12:48 PM CEMENT MASON APPRENTICE [facility] SPECIALTY CORE/PROT/ENDO Blood STRUCTURE OF LEFT UPPER LIMB / Unknown Venipuncture / Unknown 10/04/2024 5:37 AM CEMENT MASON APPRENTICE 10/04/2024 9:50 AM CEMENT MASON APPRENTICE us Wendy Avina MD LAB - MICRO GENERAL ORDERABLE S Final Result [facility] SPECIALTY CORE/PROT/ENDO Specialty Core/Prot/Endo [address] [facility], [address] * (ABNORMAL) Basic metabolic panel (10/01/2024 5:51 AM CEMENT [facility]ON APPRENTICE) Only the most recent of10 resultswithin the time period is included. Sodium 142 135 - 145 mmol/L 10/01/2024 6:27 AM CEMENT MASON APPRENTICE [facility] Potassium 4.0 3.4 - 5.3 mmol/L 10/01/2024 6:27 AM CEMENT MASON APPRENTICE [facility] Chloride 108(H) 98 - 107 mmol/L 10/01/2024 6:27 AM [facility] Carbon Dioxide (CO2) 23 22 - 29 mmol/L 10/01/2024 6:27 AM [facility] Anion Gap 11 7 - 15 mmol/L 10/01/2024 6:27 AM [facility] Urea Nitrogen 27.6(H) 8.0 - 23.0 mg/dL 10/01/2024 6:27 AM [facility] Creatinine 1.50(H) 0.67 - 1.17 mg/dL 10/01/2024 6:27 AM [facility] GFR Estimate 47(L) >60 mL/min/1.7 3m2 10/01/2024 6:27 AM [facility] Comment:eGFR calculated us2020 CKD-EPI equation. Calcium 9.0 8.8 - 10.4 mg/dL 10/01/2024 6:27 AM [facility] Comment:Reference intervals for this test were updated on 06/01/2024 to reflect our healthy population more accurately. There may be differences in the flagging of prior results with similar values performed with this method. Those prior results can be interpreted in the context of the updated reference intervals. Glucose 86 70 - 99 mg/dL 10/01/2024 6:27 AM [facility] Blood STRUCTURE OF RIGHT UPPER LIMB / Unknown Venipuncture / Unknown 10/01/2024 5:51 AM CEMENT MASON APPRENTICE 10/01/2024 6:01 AM CEMENT MASON APPRENTICE Torres Centeno MD LAB - BLOOD ORDERABLES Final Result LABORATORY [facility] [address] Lab (1st floor, no room number) [place] [address], [place] * Platelet count (09/30/2024 6:59 AM CEMENT MASON APPRENTICE) Only the most recent of2 resultswithin the time period is included. Platelet Count 260 150 - 450 10e3/uL 09/30/2024 7:14 AM CEMENT MASON APPRENTICE LABORATORY Blood STRUCTURE OF RIGHT UPPER LIMB / Unknown Venipuncture / Unknown 09/30/2024 6:59 AM CEMENT MASON APPRENTICE 09/30/2024 7:09 AM CEMENT MASON APPRENTICE us Torres Centeno MD LAB - BLOOD ORDERABLES Final Result [facility]ORAT[facility] [address] Lab (1st floor, no room number) [place] [address], [place] * (ABNORMAL) CBC with platelets and differential (09/29/2024 6:56 AM CEMENT MASON APPRENTICE) Only the most recent of6 resultswithin the time period is included. WBC Count 6.6 4.0 - 11.0 10e3/uL 09/29/2024 7:06 AM CEMENT MASON APPRENTICE [facility] RBC Count 3.79(L) 4.40 - 5.90 10e6/uL 09/29/2024 7:06 AM CEMENT MASON APPRENTICE [facility] Hemoglobin 12.6(L) 13.3 - 17.7 g/dL 09/29/2024 7:06 AM CEMENT MASON APPRENTICE LABORATORY Hematocrit 39.7(L) 40.0 - 53.0 % 09/29/2024 7:06 AM CEMENT MASON APPRENTICE LABORATORY MCV 105(H) 78 - 100 fL 09/29/2024 7:06 AM CEMENT MASON APPRENTICE LABORATORY MCH 33.2(H) 26.5 - 33.0 pg 09/29/2024 7:06 AM CEMENT MASON APPRENTICE LABORATORY MCHC 31.7 31.5 - 36.5 g/dL 09/29/2024 7:06 AM CEMENT MASON APPRENTICE LABORATORY RDW 13.2 10.0 - 15.0 % 09/29/2024 7:06 AM CEMENT MASON APPRENTICE LABORATORY Platelet Count 259 150 - 450 10e3/uL 09/29/2024 7:06 AM CEMENT MASON APPRENTICE LABORATORY % Neutrophils 64 % 09/29/2024 7:06 AM CEMENT MASON APPRENTICE [facility] % Lymphocytes 15 % 09/29/2024 7:06 AM CEMENT MASON APPRENTICE [facility] % Monocytes 11 % 09/29/2024 7:06 AM CEMENT MASON APPRENTICE [facility] % Eosinophils 9 % 09/29/2024 7:06 AM CEMENT MASON APPRENTICE [facility] % Basophils 1 % 09/29/2024 7:06 AM CEMENT MASON APPRENTICE [facility] % Immature Granulocytes 0 % 09/29/2024 7:06 AM CEMENT MASON APPRENTICE [facility] NRBCs per 100 WBC 0 <1 /100 024 7:06 AM CEMENT MASON APPRENTICE [facility] Absolute Neutrophils 4.3 1.6 - 8.3 10e3/uL 09/29/2024 7:06 AM CEMENT MASON APPRENTICE [facility] Absolute Lymphocytes 1.0 0.8 - 5.3 10e3/uL 09/29/2024 7:06 AM CEMENT MASON APPRENTICE [facility] Absolute Monocytes 0.7 0.0 - 1.3 10e3/uL 09/29/2024 7:06 AM CEMENT MASON APPRENTICE [facility] Absolute Eosinophils 0.6 0.0 - 0.7 10e3/uL 09/29/2024 7:06 AM CEMENT MASON APPRENTICE [facility] Absolute Basophils 0.1 0.0 - 0.2 10e3/uL 09/29/2024 7:06 AM CEMENT MASON APPRENTICE [facility] Absolute Immature Granulocytes 0.0 <=0.4 10e3/uL 09/29/2024 7:06 AM CEMENT MASON APPRENTICE LABORATORY Absolute NRBCs 0.0 10e3/uL 09/29/2024 7:06 AM CEMENT MASON APPRENTICE LABORATORY Blood TOPOGRAPHY UNKNOWN / Unknown Venipuncture / Unknown 09/29/2024 6:56 AM CEMENT MASON APPRENTICE 09/29/2024 7:02 AM CEMENT MASON APPRENTICE us Marie Alex MD LAB - BLOOD ORDERABLES Fi nal Result [facility] [address] Lab (1st floor, no room number) [place] [address] * CK total (09/28/2024 7:32 AM CEMENT MASON APPRENTICE) Only the most recent of5 resultswithin the time period is included. CK 67 39 - 308 U/L 09/28/2024 8:15 AM CEMENT MASON APPRENTICE [facility] Blood STRUCTURE OF RIGHT UPPER LIMB / Unknown Venipuncture / Unknown 09/28/2024 7:32 AM CEMENT MASON APPRENTICE 09/28/2024 7:54 AM CEMENT MASON APPRENTICE us Marie Alex MD LAB - BLOOD ORDERABLES Fi nal Result [facility] Lab [address] Lab (1st floor, no room number) [place] [address] * Phosphorus (09/26/2024 6:55 AM CEMENT MASON APPRENTICE) Only the most recent of2 resultswithin the time period is included. Phosphorus 3.1 2.5 - 4.5 mg/dL 09/26/2024 7:36 AM CEMENT MASON APPRENTICE LABORATORY Blood STRUCTURE OF RIGHT UPPER LIMB / Unknown Venipuncture / Unknown 09/26/2024 6:55 AM CEMENT MASON APPRENTICE 09/26/2024 6:58 AM CEMENT [facility]ON APPRENTICE Marie Alex MD LAB - BLOOD ORDERABLES Fi nal Result Performing Organization Address City/[facility]/ZIP Co de Phone Number [facility] Lab [address] Lab (1st floor, no room number) [place] [address] * Magnesium (09/26/2024 6:55 AM CEMENT MASON APPRENTICE) Only the most recent of2 resultswithin the time period is included. Magnesium 2.2 1.7 - 2.3 mg/dL 09/26/2024 7:36 AM CEMENT [facility]ON APPRENTICE LABORATORY Blood STRUCTURE OF RIGHT UPPER LIMB / Unknown Venipuncture / Unknown 09/26/2024 6:55 AM CEMENT MASON APPRENTICE 09/26/2024 6:58 AM CEMENT [facility]ON APPRENTICE Marie Alex MD LAB - BLOOD ORDERABLES Fi nal Result [facility] [address] Lab (1st floor, no room number) [place] [address] * [place] level (09/25/2024 7:56 PM CEMENT MASON APPRENTICE) Only the most recent of2 resultswithin the time period is included. [place] 0.92 0.60 - 1.20 mmol/L 09/25/2024 8:45 PM CEMENT MASON APPRENTICE LABORATORY Comment: Therapeutic: 0.60 - 1.20 mmol/L; Toxic: >2.00 mmol/L Blood STRUCTURE OF LEFT UPPER LIMB / Unknown Venipuncture / Unknown 09/25/2024 7:56 PM CEMENT MASON APPRENTICE 09/25/2024 8:00 PM CEMENT MASON APPRENTICE us Marie Alex MD LAB - BLOOD ORDERABLES Fi nal Result Performing Organization Address City/[facility]/ZIP Co de Phone Number [facility] [address] Lab (1st floor, no room number) [place] [phone] [place] [address] * Hepatic panel (09/24/2024 5:54 AM CEMENT MASON APPRENTICE) Protein Total 6.9 6.4 - 8.3 g/dL 09/24/2024 10:47 AM CEMENT [facility]ON APPRENTICE [facility] Albumin 4.2 3.5 - 5.2 g/dL 09/24/2024 10:47 AM CEMENT [facility]ON APPRENTICE LABORATORY Bilirubin Total 0.4 <=1.2 mg/dL 09/24/2024 10:47 AM CEMENT [facility]ON APPRENTICE [facility] Alkaline Phosphatase 105 40 - 150 U/L 09/24/2024 10:47 AM CEMENT [facility]ON APPRENTICE [facility] AST 40 0 - 45 U/L 09/24/2024 10:47 AM CEMENT MASON APPRENTICE [facility] ALT 28 0 - 70 U/L 09/24/2024 10:47 AM CEMENT [facility]ON APPRENTICE LABORATORY Bilirubin Direct <0.20 0.00 - 0.30 mg/dL 09/24/2024 10:47 AM CEMENT [facility]ON APPRENTICE [facility] Blood STRUCTURE OF LEFT HAND / Unknown Venipuncture / Unknown 09/24/2024 5:54 AM CEMENT MASON APPRENTICE 09/24/2024 6:06 AM CEMENT [facility]ON APPRENTICE us Marie Alex MD LAB - BLOOD ORDERABLES Fi nal Result Performing Organization Address City/[facility]/ZIP Co de Phone Number [facility] [address] Lab (1st floor, no room number) [place] [phone] * Vitamin B12 (09/24/2024 5:54 AM CEMENT MASON APPRENTICE) Vitamin B12 441 232 - 1,245 pg/mL 09/24/2024 11:44 PM CEMENT MASON APPRENTICE [facility] Blood STRUCTURE OF LEFT HAND / Unknown Venipuncture / Unknown 09/24/2024 5:54 AM CEMENT MASON APPRENTICE 09/24/2024 6:06 AM CEMENT [facility]ON APPRENTICE Mani Monterroso MD LAB - BLOOD ORDERABLES Fi nal Result U LABORATORY [facility] [place] [facility] [address] [facility] [address], [address] [place] [phone] * MR Brain w/o & w Contrast (09/23/2024 9:57 AM CEMENT [facility]ON APPRENTICE) Anatomical Region Laterality Modality Head, SUBRAD MR NEURO, UMP MR NEURO, RAD MR Magnetic Resonance Impressions 09/23/2024 10:45 AM CEMENT MASON APPRENTICE IMPRESSION: 1. No acute intracranial finding. No evidence for recent ischemia, intracranial hemorrhage, or mass. 2. At most mild to moderate volume loss. 3. Otherwise unremarkable brain MRI for age. DOYLE PRADO MD SYSTEM ID: [id number] Narrative 09/23/2024 10:45 AM CEMENT [facility]ON APPRENTICE MR BRAIN WITHOUT AND WITH CONTRAST 09/23/2024 [...] for age. DOYLE PRADO MD SYSTEM ID: [id number] Torres Centeno MD IMG MRI ORDERABLES Final Resu lt * (ABNORMAL) Glucose by meter (09/20/2024 7:53 PM CEMENT MASON APPRENTICE) [facility] GLUCOSE BY METER POCT 111(H) 70 - 99 mg/dL 09/20/2024 8:05 PM CEMENT MASON APPRENTICE LABORATORY POC Blood, Capillary BLOOD SPECIMEN / Unknown 09/20/2024 7:53 PM CEMENT MASON APPRENTICE 09/20/2024 8:05 PM CEMENT [facility]ON APPRENTICE Torres Centeno MD LAB - BEAKER POCT Final Resul t LABORATORY [facility] [address] [facility] (1st floor, no room number) [place] [address] * CT Cervical Spine w/o Contrast (09/20/2024 10:59 AM CEMENT MASON APPRENTICE) Anatomical Region Laterality Modality Spine, SUBRAD CT NEURO, SUBR AD CT NEURO, UMP CT SPINE, RAD CT Computed Tomography Impressions 09/20/2024 11:22 AM CEMENT MASON APPRENTICE IMPRESSION: 1. Slight depression and superior vertebral body sclerosis at T1 and T2 could reflect subtle endplate fractures of uncertain age. Consider MRI. 2. No acute cervical spine fracture. DOYLE PRADO MD SYSTEM ID: [id number] Narrative 09/20/2024 11:22 AM CEMENT [facility]ON APPRENTICE CT CERVICAL SPINE WITHOUT CONTRAST 09/20/2024 10:59 [...] spine fracture. DOYLE PRADO MD SYSTEM ID: [id number] Jake Stubbs MD IM CT ORDERABLES Final R esult * Head CT w/o contrast (09/20/2024 10:59 AM CEMENT [employer]ON APPRENTICE) Anatomical Region Laterality Modality Head, SUBRAD CT NEURO, SUBRA D CT NEURO, UMP CT NEURO, RAD CT Computed Tomography Impressions 09/20/2024 11:07 AM CEMENT [employer]ON APPRENTICE IMPRESSION: No intracranial hemorrhage, mass, or definite CT evidence of recent ischemia. DOYLE PRADO MD SYSTEM ID: [id number] Narrative 09/20/2024 11:07 AM CEMENT [facility]ON APPRENTICE CT HEAD W/O CONTRAST 09/20/2024 10:59 AM [...] recent ischemia. DOYLE PRADO MD SYSTEM ID: [id number] Jake Stubbs MD IMG CT ORDERABLES Final R esult * UA with Microscopic reflex to Culture (09/20/2024 9:56 AM CEMENT [employer]ON APPRENTICE) Color Urine Light Yellow Colorless, Straw, Light Yellow, Yellow 09/20/2024 10:15 AM [facility] Appearance Urine Clear Clear 09/20/20 24 10:15 AM [facility] Glucose Urine Negative Negative mg/dL 09/20/2024 10:15 AM [facility] Bilirubin Urine Negative Negative 10:15 AM [facility] Ketones Urine Negative Negative mg/dL 09/20/2024 10:15 AM [facility] Specific [place] Urine 1.011 1.003 - 1.035 09/20/2024 10:15 AM [facility] Blood Urine Negative Negative 09/20/2024 10:15 AM [facility] pH Urine 6.5 5.0 - 7.0 09/20/2024 10:15 AM [facility] Protein Albumin Urine Negative Negative mg/dL 09/20/2024 10:15 AM [facility] Urobilinogen Urine Normal Normal, 2.0 mg/dL 09/20/2024 10:15 AM CEMENT MASON APPRENTICE [facility] Nitrite Urine Negative Negative 09/20/2024 10:15 AM CEMENT [facility]ON APPRENTICE [facility] Leukocyte Esterase Urine Negative Negative 09/20/2024 10:15 AM CEMENT [facility]ON APPRENTICE [facility] RBC Urine <1 <=2 /HPF 09/20/2024 10:15 AM CEMENT [facility]ON APPRENTICE [facility] WBC Urine <1 <=5 /HPF 09/20/2024 10:15 AM CEMENT [facility]ON APPRENTICE LABORATORY Urine URINE SPECIMEN OBTAINED BY CLEAN CATCH PROCEDURE / Unknown Non-blood Collection / Unknown 09/20/2024 9:56 AM CEMENT MASON APPRENTICE 09/20/2024 10:00 AM CEMENT MASON APPRENTICE Narrative [facility] - 09/20/2024 10:15 AM CEMENT [facility]ON APPRENTICE Urine Culture not indicated Jake Stubbs MD LAB - URINE ORDERABLES Fi nal Result [facility] [address] (1st floor, no room number) [address] * TSH with free T4 reflex (09/20/2024 9:56 AM CEMENT MASON APPRENTICE) TSH 0.34 0.30 - 4.20 uIU/mL 09/20/2024 7:07 PM CEMENT MASON APPRENTICE LABORATORY Blood BLOOD SPECIMEN / Unknown Venipuncture / Unknown 09/20/2024 9:56 AM CEMENT MASON APPRENTICE 09/20/2024 10:00 AM CEMENT MASON APPRENTICE Minnie Bernard PA-C LAB - BLOOD ORDERABLES F inal Result [facility] [address] [facility] (1st floor, no room number) [address] * EKG 12-lead, tracing only (09/20/2024 9:39 AM CEMENT MASON APPRENTICE) Systolic Blood Pressure mmHg RADIOLOGY RESULTS Diastolic Blood Pressure mmHg RADIOLOGY RESULTS Ventricular Rate 81 BPM RAD IOLOGY RESULTS Atrial Rate 81 BPM RADIOLOG Y RESULTS CT Interval 204 ms RADIOLOG Y RESULTS QRS Duration 126 ms RADIOLO GY RESULTS QT 428 ms RADIOLOGY RESULTS QTc 497 ms RADIOLOGY RESULTS P [place] 63 degrees RADIOLOGY RESULTS R AXIS -80 degrees RADIOLOGY RESULTS T [place] 54 degrees RADIOLOGY RESULTS Interpretation ECG Sinus rhythm Right bundle branch block Left anterior fascicular block Bifascicular block Abnormal ECG No previous ECGs available Unconfirmed report - interpretation of this ECG is computer generated - see medical record for final interpretation Confirmed by - EMERGENCY ROOM, PHYSICIAN ([id number]), editorial specialist Miko Cruz ([id number]) on 09/20/2024 9:46:28 AM RADIOLOGY RESULTS 09/20/2024 9:39 AM CEMENT MASON APPRENTICE 09/20/2024 9:46 AM CEMENT MASON APPRENTICE us Jake Stubbs MD ECG ORDERABLES Edited Re tatyana - Final RADIOLOGY RESULTS from Last 3 Months Insurance MEDICARE MEDICARE Advance Directives For more information, please contact: [phone] Documents on File Type Date Recorded Patient Housekeeping Staff Expl anation Advance Directives and [employer] g Will 10/06/2024 POLST 06-11-2024 * No CPR- Do NOT Intubate (Latest Code Status on File) Date Activated Date Inactivated Comments 10/01/2024 12:25 PM Question Answer Comments Code status determined by: Discussion with sandy nt/ legal decision maker * No CPR- [...] Comments Code status determined by: Discussion with sandy nt/ legal decision maker Care Teams Bag Grader Relationship Specialty Start Date End Date Ashlyn Moody APRN TRANSMISSION TECHNICIAN [facility] [address] [place] [address] PCP - General Nurse Practitioner Primary Care 08/10/24
--- OUTSIDE RECORDS SUMMARY | 2024-12-03 19:29 | XMS_ITS | Clinical Summary ---
Author Organization [employer] Address [address] [place] [address] Care Team Providers Care Cottage Attendant Name Role Phone Unavailable Primary Care Provider Unavailabl e Source Comments You are receiving this document as you are listed as the primary care provider,follow-up provider, or the patient has been referred to you for consultation.This is in compliance with the Medicare and[facility] EHR Incentive Program,which states Providers who transition their patient to another setting of careor provider of care or refers their patient to another provider of care shouldprovide summary care record for each transition of care or referral. [employer] Allergies Active Allergy Reactions Criticality Noted Date Comments Ciprofloxacin Fatigue Low 04/16/2024 & drowsiness Medications Medication Sig Dispensed Refills Start Date End Date Status acetaminophen (TYLENOL) 325 MG tablet Take 3 Tablets (975 mg) by mouth three times a day. 05/05/2024 Active atorvastatin (LIPITOR) 20 MG tablet Take 1 Tablet (20 mg) by mouth daily at bedtime. 05/05/2024 Active buPROPion (WELLBUTRIN) 75 MG tablet Take 2 Tablets (150 mg) by mouth three times a day. 05/05/2024 Active levothyroxine (SYNTHROID) 137 MCG tablet Take 1 Tablet (137 mcg) by mouth daily. 05/05/2024 Active lithium carbonate 300 MG capsule Take 1 Capsule (300 mg) by mouth daily at bedtime. 05/05/2024 Active lithium carbonate 300 MG capsule Take 1 Capsule (300 mg) by mouth every other day. 05/06/2024 Active melatonin 3 MG tablet Take 1 Tablet (3 mg) by mouth daily at bedtime. 05/05/2024 Active midodrine (PROAMATINE) 5 MG tablet Take 1 Tablet (5 mg) by mouth two times a day. 05/05/2024 Active Polyethylene Glycol 3350 (PEG 3350) 17 g PACK Take 17 g by mouth daily as needed. 05/04/2024 Active lidocaine (LIDODERM) 5 % patch Apply 2 Patches to skin daily. Remove after 12 hours 05/06/2024 Active Additional Information Patient not taking.Reported on 07/30/2024 diclofenac (VOLTAREN) 1 % gel 2gm to left shoulder TID; 4gm to left hip TID 05/06/2024 Active Sennosides (SENNA) 8.6 MG tabletIndications:Co nstipation Take 1 Tablet (8.6 mg) by mouth two times a day. May also take 1 Tablet (8.6 mg) two times daily as needed (constipation). Hold if diarrhea or unable to swallow. Indications: Constipation. 05/10/2024 Active gabapentin (NEURONTIN) 300 MG capsule Take 2 Capsules (600 mg) by mouth two times a day. 05/21/2024 Active ibuprofen (MOTRIN) 200 MG tablet Take 2 Tablets (400 mg) by mouth every 6 hours as needed for Pain. Active Active Problems Problem Noted Date Diagnosed Date TBI (traumatic brain injury) 05/05/2024 Essential hypertension 05/05/2024 Prostate cancer 05/05/2024 Bipolar disorder 05/05/2024 CKD (chronic kidney disease) stage 3, GFR 30-59 ml/min 05/05/2024 Closed fracture of left iliac wing with routine healing 05/05/2024 Closed fracture of left clavicle with routine he aling 05/05/2024 Closed fracture of multiple ribs of left side with routine healing 05/05/2024 Orthostatic hypotension 05/05/2024 Anemia 05/05/2024 Oropharyngeal dysphagia 05/05/2024 Slow transit constipation 05/05/2024 Insomnia 05/05/2024 Acquired hypothyroidism 05/05/2024 HLD (hyperlipidemia) 05/05/2024 Pulmonary nodule 05/05/2024 Overview (05/05/2024): 2.1 cm right upper lobe nodule and an enlarged 12 mm infracarinal lymph node. Pulmonology was consulted who recommended infectious labs which are thus far negative on day of discharge. Patient is to follow-up outpatient in 6 weeks in pulmonary clinic for potential repeat imaging and/or endobronchial ultrasound. Cognitive impairment 04/27/2024 Overview (05/05/2024): Neuropsych testing on 04/29/24: moderate to severe cognitive impairments associated with his recent head injury and likely worsened by other medical/vascular comorbidities. In addition, an underlying neurodegenerative process cannot be ruled out given the onset and course of his impairments and his neuropsychological profile. Repeat evaluation is recommended in about 9 months Depression 04/22/2024 Social History Tobacco Use Types Packs/Day Years Used Date Smoking Tobacco: Never Assessed Sex and Gender Information Value Date Recorded Sex Assigned at Not on file Gender Identity Not on file Sexual Orientation Not on file Last Filed Vital Signs Vital Sign Reading Time Taken Comments Blood Pressure 127/83 07/30/2024 10:01 AM CDT Pulse 65 07/30/2024 10:01 AM CDT Temperature 36.4 C (97.5 F) 07/30/2024 6:14 AM CDT Respiratory Rate 16 07/30/2024 10:01 AM CDT Oxygen Saturation 96% 07/30/2024 10:01 AM CDT Inhaled Oxygen Concentration - - Weight 79.4 kg (175 lb) 07/30/2024 6:26 AM CDT Height 182.9 cm (6') 07/30/2024 6:26 AM CDT Body Mass Index 23.73 07/30/2024 6:26 AM CDT Plan of Treatment Upcoming Encounters Date Type Department Care Team (Late st Contact Info) Description 02/22/2025 11:15 AM CDT Appointment Naina Alyson [place] [address] [facility] [address] [place] [address] Mario Jovel MD [address] [place] [address] Health Maintenance Due Date Last Done Comments Medicare Annual Wellness Visit 1945 RSV (1 - 1-dose 75+ series) 2019 COVID-19 Vaccine ( season) 2024 09/24/2023, 09/20/2022, 07/09/2022, Additional history exists Influenza (#1) 2024 09/24/2023, 08/18, 10/10/2021, Additional history exists DTaP/Tdap/Td (6 - Tdap) 05/12/2033 05/12/20, 05/12/2023, 10/20/2015, Additional history exists Pneumococcal 65+ Yrs Completed 05/11/2018, 03/23/2015, 08/24/2009 Zoster/Shingles Completed 01/05/2019, 09/18, 01/21/2008 HepA Aged Out No longer eligi ble based on patient's age to complete this topic HepB Aged Out No longer eligi ble based on patient's age to complete this topic Hib Aged Out No longer eligi ble based on patient's age to complete this topic IPV (Polio) Aged Out No longer eligi ble based on patient's age to complete this topic MCV4 Aged Out No longer eligi ble based on patient's age to complete this topic Advance Directives * Full Code (Latest Code Status on File) Date Activated Date Inactivated Comments 07/30/2024 8:08 AM 07/30/2024 12:58 PM
--- OUTSIDE RECORDS SUMMARY | 2024-12-03 19:29 | XMS_ITS | Encounter Summary ---
Author Organization [employer] Address [address] [address] Care Team Providers Care Hospital Director Name Role Phone Unavailable Primary Care Provider Unavailabl e Encounter Details Date Type Department Care Team (Late st Contact Info) Description 05/24/2024 Lab Requisition [facility] [address] [facility] [place] [address] Cecilia Morales [facility]BS [address] [place] [address] Nutritional anemia, unspecified Social History Tobacco Use Types Packs/Day Years Used Date Smoking Tobacco: Never Assessed Sex and Gender Information Value Date Recorded Sex Assigned at Not on file Gender Identity Not on file Sexual Orientation Not on file documented as of this encounter Plan of Treatment Upcoming Encounters Date Type Department Care Team (Late st Contact Info) Description 02/22/2025 11:15 AM CDT Appointment Naina [place] [address] [facility] [address] [place] [address] Mario Jovel MD [address] [place] [address] documented as of this encounter Procedures Procedure Name Priority Date/Time Associated Diagnosis Comments FOLATE ONLY (4HR FAST RECOMMENDED) Routine 05/25/2024 7:37 AM CDT Nutritional anemia, unspecified VITAMIN B12 ONLY Routine 05/25/2024 7:37 AM CDT Nutritional anemia, unspecified documented in this encounter Results * Vitamin B12 Only (05/25/2024 7:37 AM CDT) Vitamin B12 422 213 - 816 pg/mL 05/27/2024 1:10 PM CDT [facility] Blood Venipuncture / Unknown 05/25/2024 7:37 AM CDT 05/25/2024 1:05 PM CDT Cecilia MORALES [facility]_1 Performing Organization Address [facility] Co de Phone Number [facility] [address] * Folate Only (4Hr Fast Recommended) (05/25/2024 7:37 AM CDT) Folate 8.0 >=7.0 ng/mL 05/25/2024 2:06 PM CDT [facility] Blood Venipuncture / Unknown 05/25/2024 7:37 AM CDT 05/25/2024 1:05 PM CDT Cecilia MORALES LAB_1 Performing Organization Address City/[facility]/ZIP Co de Phone Number [facility] [address] documented in this encounter Visit Diagnoses Diagnosis Nutritional anemia, unspecified documented in this encounter
--- OUTSIDE RECORDS SUMMARY | 2024-12-03 19:29 | XMS_ITS | Clinical Summary ---
Author Organization [facility] Address [place], [place] [address] Care Team Providers Care Cardiology Specialist Name Role Phone Angel Morrell MD Primary Care Provide r Allergies Active Allergy Reactions Criticality Noted Date Comments Ciprofloxacin Hcl Other - Describe In Comment Field 01/25/2022 Drowsy Medications aspirin 81 mg tabletIndications: myocardial infarction prevention Take 81 mg by mouth once daily with a meal. Indications: MYOCARDIAL INFARCTION PREVENTION Active lithium carbonate (LITHONATE) 300 mg capsuleIndications :bipolar disorder Take 300 mg by mouth once daily. Take one capsule on the odd days of the month, and 2 capsules on the even days of the month. Active buPROPion (WELLBUTRIN SR) 150 mg Sustained-Release tabletIndications: anxiety with depression Take 150 mg by mouth 3 times daily. Active atorvastatin (LIPITOR) 20 mg tabletIndications: mixed hyperlipidemia Take 20 mg by mouth once daily. Indications: MIXED HYPERLIPIDEMIA Active multivitamin (MVI) tabletIndications: vitamin deficiency prevention Take 1 tablet by mouth once daily. Indications: VITAMIN DEFICIENCY PREVENTION Active gabapentin (NEURONTIN) 300 mg capsuleIndications :neuropathic pain Take 600 mg by mouth 3 times daily. Indications: NEUROPATHIC PAIN Active ibuprofen (ADVIL; MOTRIN) 600 mg tablet Take 600 mg by mouth 4 times daily if needed for Pain or Headache. Maximum of 3200 mg in 24 hours. Active levothyroxine (SYNTHROID) 137 mcg tabletIndications: hypothyroidism Take 137 mcg by mouth before breakfast. Indications: HYPOTHYROIDISM Active tamsulosin (FLOMAX) 0.4 mg capsule Take 0.4 mg by mouth. 01/02/20 22 Active acetaminophen (TYLENOL) 500 mg capsule Take 1,000 mg by mouth every 6 hours if needed. 08/26/20 22 Active amLODIPine (NORVASC) 2.5 mg tablet Take 2.5 mg by mouth one time if needed. If your BP is 150/85 and over 08/21/20 22 Active traMADoL (ULTRAM) 50 mg tabletIndications: Closed fracture of olecranon process of ulna, unspecified laterality, initial encounter Take 1 Tablet (50 mg) by mouth every 6 hours if needed for Pain. 12 Tablet 3 4:19 PM [employer] 11/29/19 23 Active traMADoL (ULTRAM) 50 mg tabletIndications: Closed fracture of olecranon process of right ulna with routine healing, subsequent encounter Take 1 Tablet (50 mg) by mouth every 6 hours if needed for Pain. 30 Tablet 12/16/19 23 Active bicalutamide (CASODEX) 50 mg tablet Take 50 mg by mouth once daily. 10/02/20 22 Active Active Problems Problem Noted Date Diagnosed Date Cataract, right 03/10/2017 Cataract, left 02/25/2017 Bilateral pneumonia 04/21/2014 Hypoxia 04/21/2014 CAD (coronary artery disease) 04/21/2014 Bipolar disorder 04/21/2014 Overview (04/21/2014): Stable Hypertension 04/21/2014 Elevated liver enzymes 04/21/2014 Anemia 04/21/2014 Immunizations Name Administration Dates Next Due Influenza, IIV3 (Age >=3 years) 08/15/2015,07/27 Pneumococcal Poly,23-Valent (Pneumovax) 08/24/20 09 Pneumococcal conj 13-Valent (Prevnar 13) 015 Tdap 05/12/2023,10/20/2015,01/24/2009 Zoster (Zostavax-ZVL, live) 01/21/2008 Social History Tobacco Use Types Packs/Day Years Used Date Smoking Tobacco: Former Passive Smoke Exposure: Never Smokeless Tobacco: Never Tobacco Cessation:Counseling Given: Not Answered Comments:quit aug 2000 Alcohol Use Standard Drinks/Week Comments No 0 (1 standard drink = 0.6 oz pur e alcohol) hx 37 years sober Sex and Gender Information Value Date Recorded Sex Assigned at Not on file Legal Sex Male 6:59 AM [employer] Gender Identity Not on file Sexual Orientation Not on file Obstetrics History Last Filed Vital Signs Vital Sign Reading Time Taken Comments Blood Pressure 139/80 05/14/2023 11:52 AM CDT Pulse 67 05/14/2023 11:52 AM CDT Temperature 36.4 C (97.5 F) 05/14/2023 11:12 AM CDT Respiratory Rate 20 05/14/2023 11:52 AM CDT Oxygen Saturation 96% 05/14/2023 11:52 AM CDT Inhaled Oxygen Concentration - - Weight 89.5 kg (197 lb 6.4 oz) 05/14/2023 11:12 AM CDT Height 185.4 cm (6' 1) 05/14/2023 11:12 AM CDT Body Mass Index 26.04 05/14/2023 11:12 AM CDT Plan of Treatment Health Maintenance Due Date Last Done Comments Depression screening for age 12+ 1957 Zoster (shingles) series for age 50+ (2 of 3) 03/17/2008 01/21/2008 BMI (ht and wt on same day) for age 18+ 02/17/2018 02/17/2017, 02/05/2017 RSV vaccine for adults or (1 - 1-dose 75+ series) 2019 Pneumococcal series for age 50+ (3 of 3 - PCV20 or PCV21) 03/23/2020 03/23/2015, 08/24/2009 COVID-19 vaccine series ( season) 2024 09/24/2023, 09/20/2022, 07/09/2022, Additional history exists Influenza for age 65+ 07/18/2024 08/15/2015, 009 Tetanus booster 05/12/2033 05/12/2023, 0 02/2015, 01/24/2009 Tdap Completed 05/12/2023, 0 02/2015, 01/24/2009 Medical Devices Implanted Type Area Aniline Press Worker Device Identifier Shelf Expiration Date Model / Serial / Lot Wire [id number] Non-Threaded [id number] [facility] - [id number] Implanted:Qty : 1 on 11/29/2022 by Jim Ann MD at [facility] Pins, Rods, Wires Right: Elbow [employer] [id number] / / [employer] Extended Range Of Vision Iol Implanted:Qty : 1 on 02/26/2017 by Damir Robles Jr., MD at [facility] Left: Eye [employer] 01/07/2022 01/07/2022 / [id number] / [employer] Extended Range Of Vision Iol Implanted:Qty : 1 on 03/12/2017 by Damir Robles Jr., MD at [facility] Right: Eye [employer] 12/10/2021 [id number] / [id number] / Insurance MEDICARE PART B HB ONLY MEDICARE PART A HB ONLY AARP HB ONLY Advance Directives Documents on File Type Date Recorded Patient Deputy Manager Expl anation Healthcare Directive 02/06/2012 07/13/19 99 * Full Code (Latest Code Status on File) Date Activated Date Inactivated Comments 11/29/2022 10:39 AM 11/29/2022 6:17 PM Question Answer Comments Code Status Discussion: Reviewed Preferences * Full Code Date Activated Date Inactivated Comments 01/21/2022 6:55 AM 01/21/2022 5:06 PM Question Answer Comments Code Status Discussion: Not Discussed * Full Code Date Activated Date Inactivated Comments 03/12/2017 8:42 AM 03/12/2017 2:12 PM * Full Code Date Activated Date Inactivated Comments 02/26/2017 8:25 AM 02/26/2017 1:34 PM * Full Code Date Activated Date Inactivated Comments 04/01/2016 8:26 AM 04/01/2016 3:24 PM Care Teams Cardiology Specialist Relationship Specialty Start Date End Date Angel Morrell MD [address] [place] [address] PCP - General Family Practice 04/20/14
--- OUTSIDE RECORDS SUMMARY | 2024-12-03 19:30 | XMS_ITS ---
Author Organization [facility] Address [address] [place] [address] Care Team Providers Care Bread Panner Name Role Phone None Reported, Pcp Primary Care Provider Unavail able Active Problems * This document contains information received from the source organization and may not represent a complete record from that organization. Problem Noted Date Diagnosed Date History Of Falling 01/23/2024 Injury Head Initial 05/16/2023 Primary Malignant Neoplasm Of Prostate Cancer Staging:Clinical stage from 08/26/2022:Stage IIIA(cT1c, cN0, cM0, PSA: 22.8, Grade Group: 3) - Unsigned Overview (08/09/2022): Added automatically from request for surgery [id number] Benign Prostatic Hyperplasia Hypertrophy With Ob struction 01/31/2022 Elevated Prostate-Specific Antigen 01/08/2022 Frequency Urinary 10/03/2021 Lesion Larynx 05/11/2019 Chronic Kidney Disease (CKD) , Stage 3a Glomerular Filtration Rate (GFR) 45 To 59 04/15/2019 Assessment & Plan (01/01/2022 3:02 PM BRIDGE PAINTER): Follow up blood labs creatinine/eGFR, potassium and sodium were ordered today, as part of the preoperative exam. Values have been stable. Need Vaccine Immunization 01/05/2019 Primary Osteoarthritis Shoulder Bilateral 2014 Anemia 04/21/2014 Bipolar Disorder 01/20/2014 Overview (05/11/2018): Bipolar disease NOS Overview: Stable Atherosclerotic Heart Diseas e Of [place] Coronary Artery Without Angina Pectoris 01/20/2014 Overview (05/11/2018): Coronary artery disease (CAD) Hypothyroidism 01/20/2014 Pain Back 06/26/2009 Hypertension Essential Primary 02/28/2009 Coronary Artery Disease Without Angina Pectoris 02/28/2009 Overview (04/08/2017): CAD Asymptomatic Hyperlipidemia 02/28/2009 Current Oncology Plans No current plan information found. Past Plans Hem/Onc Therapy Plan 1 Plan Name Start Date Discontinue Date Treatment Medications Discontinue Reason Plan Provider LEUPROLIDE ACETATE EVERY 12 WEEKS 10/02/2022 07/14/2023 No medications scheduled. Amendment Change Celina Kitchen APRN, C.N.P., D.N.P. Hem/Onc Therapy Plan 2 Plan Name Start Date Discontinue Date Treatment Medications Discontinue Reason Plan Provider Leuprolide Acetate Every 24 Weeks 07/14/2023 01/02/2024 No medications scheduled. Therapy Complete Dru Rain M.D. Radiation Treatments * Plan Last Treated On Elapsed Days Fractions Treated Prescribed Fraction Dose Prescribed Total Dose [id number] 01/27/2023 28 20 of 20 310 cGy 6,200 cGy Reference Point Last Treated On Elapsed Days Session Dose Total Dose [id number] 01/27/2023 28 310 cGy 6,200 cGy Lifetime Dose Tracking * Chemical Lifetime Dose Automatic Entry Manual Entr y Radiation 1.64 mGy 1.64 mGy 0 mGy Fluoro Time 0.578 minutes 0.578 minutes 0 minutes Resolved Problems Problem Noted Date Diagnosed Date Resolved Date Parkinsonism Unspecified 06/24/2012
--- OUTSIDE RECORDS SUMMARY | 2024-12-03 19:30 | XMS_ITS | Encounter Summary ---
Author Organization [facility] Address [address], [place] [address] Care Team Providers Care Manager Skilled Name Role Phone Unavailable Primary Care Provider Unavailabl e Encounter Details Date Type Department Care Team (Late st Contact Info) Description 05/18/2024 Lab Requisition [facility] [address] [facility] [place], [place] [id number] Cecilia Morales [address] [place] [address] Vitamin D deficiency, unspecified (HRC) Social History Tobacco Use Types Packs/Day Years Used Date Smoking Tobacco: Never Assessed Sex and Gender Information Value Date Recorded Sex Assigned at Not on file Gender Identity Not on file Sexual Orientation Not on file documented as of this encounter Plan of Treatment Upcoming Encounters Date Type Department Care Team (Late st Contact Info) Description 02/22/2025 11:15 AM CDT Appointment Naina Alyson [facility] [address] [address] [address] [place] [phone] Mario Jovel MD [address] [place] [address] documented as of this encounter Visit Diagnoses Diagnosis Vitamin D deficiency, unspecified (HRC) documented in this encounter
--- OUTSIDE RECORDS SUMMARY | 2024-12-03 19:30 | XMS_ITS | Encounter Summary ---
Author Organization [email or web address] Address [address] [place] [address] Care Team Providers Care Therapeutic Recreation Specialist Name Role Phone Unavailable Primary Care Provider Unavailabl e Encounter Details Date Type Department Care Team (Late st Contact Info) Description 05/23/2024 Lab Requisition [facility] [address] [facility]. [place], [place] [id number] Cecilia Morales MBBS [address] [place], [place] [phone] Nutritional anemia, unspecified Social History Tobacco Use [...] 02/22/2025 11:15 AM CDT Appointment Naina Montalvo [address] [address] [address] [place] [address] Mario Jovel MD [address] [place], [place] [id number] documented as of this encounter Visit Diagnoses Diagnosis Nutritional anemia, unspecified documented in this encounter
--- OUTSIDE RECORDS SUMMARY | 2024-12-03 19:30 | XMS_ITS | Referral Summary ---
Author Organization [facility] Address [address] [place] [address] Care Team Providers Care Pipe Fittings Molder Name Role Phone None Reported, Pcp Primary Care Provider Unavail able Source Comments Patient records contain information from all sites at [facility]. For routine questions regarding patient records, call [phone] during business hours, M-F 8:00 AM - 5:00 PM Central Time. Record requests for emergency care only can be directed to [phone] at any time.[facility] Allergies Active Allergy Reactions Criticality Noted Date Comments Ciprofloxacin Other (see comments) 01/23/2024 Drowsy Medications * This document contains information received from the source organization and may not represent a complete record from that organization. MULTIVITAMIN ORAL Take by mouth daily. 1 Active lithium carbonate (ESKALITH) 300 mg capsuleIndicatio ns:Bipolar Disorder (HCC) Take 1 pill twice daily on even days, and 1 pill daily on odd days. 135 capsule 3 2 Active aspirin 81 mg chewable tablet Chew 1 tablet (81 mg total) daily. Resume 24-48 hours after procedure if urine is clear. 2 Active acetaminophen (TYLENOL) 500 mg capsule Take 2 capsules (1,000 mg total) by mouth every 6 (six) hours as needed for pain. 2 Active buPROPion (Wellbutrin SR) 150 mg 12 hr tabletIndication s:Bipolar Disorder (HCC) Take 1 tablet (150 mg total) by mouth 3 (three) times a day. 270 tablet 3 3 Active gabapentin (NEURONTIN) 300 mg capsuleIndicatio ns:Pain Low Back Unspecified Take 2 capsules (600 mg total) by mouth 3 (three) times a day. 540 capsule 3 3 Active levothyroxine (SYNTHROID, LEVOTHROID) 137 mcg tabletIndication s:Hypothyroidism Take 1 tablet (137 mcg total) by mouth daily. 90 tablet 3 3 Active hydrOXYzine (ATARAX) 25 mg tablet Take 50 mg by mouth at bedtime as needed for anxiety. 4 Active calcium carbonate-vitami n D3 (Calcium 600 with Vitamin D3) 600 mg-10 mcg (400 unit) tablet,chewable Chew 2 tablets daily. Active cholecalciferol (Vitamin D3) 50 mcg (2,000 Unit) tablet Take 50 mcg by mouth daily. Active diclofenac sodium (VOLTAREN) 1 % gelIndications:P ain Back Lumbar,Pain Hip Bilateral Apply 2 g topically 4 (four) times a day. Apply to hip. 200 g 2 4 Active atorvastatin (LIPITOR) 20 mg tabletIndication s:Hypertension Essential Primary,Hyperlip idemia Take 1 tablet (20 mg total) by mouth daily. 90 tablet 2 4 Active amLODIPine (Norvasc) 5 mg tabletIndication s:Hypertension Essential Primary TAKE 1 TAB DAILY. CHECK BLOOD PRESSURE BEFORE TAKING, DO NOT TAKE DOSE IF SYSTOLIC PRESSURE (1ST NUMBER) BELOW 110 90 tablet 3 4 Active Active Problems Problem Noted Date Diagnosed Date History Of Falling 01/23/2024 Injury Head Initial 05/16/2023 Primary Malignant Neoplasm Of Prostate 2 Cancer Staging:Clinical stage from 08/26/2022:Stage IIIA(cT1c, cN0, cM0, PSA: 22.8, Grade Group: 3) - Unsigned Overview (08/09/2022): Added automatically from request for surgery [id number] Benign Prostatic Hyperplasia Hypertrophy With Ob struction 01/31/2022 Elevated Prostate-Specific Antigen 01/08/2022 Frequency Urinary 10/03/2021 Lesion Larynx 05/11/2019 Chronic Kidney Disease (CKD) , Stage 3a Glomerular Filtration Rate (GFR) 45 To 59 04/15/2019 Assessment & Plan (01/01/2022 3:02 PM CHUTE TENDER): Follow up blood labs creatinine/eGFR, potassium and sodium were ordered today, as part of the preoperative exam. Values have been stable. Need Vaccine Immunization 01/05/2019 Primary Osteoarthritis Shoulder Bilateral 2014 Anemia 04/21/2014 Bipolar Disorder 01/20/2014 Overview (05/11/2018): Bipolar disease NOS Overview: Stable Atherosclerotic Heart Diseas e Of [place] Coronary Artery Without Angina Pectoris 01/20/2014 Overview (05/11/2018): Coronary artery disease (CAD) Hypothyroidism 01/20/2014 Pain Back 06/26/2009 Hypertension Essential Primary 02/28/2009 Coronary Artery Disease Without Angina Pectoris 02/28/2009 Overview (04/08/2017): CAD Asymptomatic Hyperlipidemia 02/28/2009 Resolved Problems Problem Noted Date Diagnosed Date Resolved Date Parkinsonism Unspecified 06/24/2012 Immunizations Name Administration Dates Next Due DTaP (Infanrix, Tripedia) 01/24/2009 HZV (ZOSTAVAX) 01/21/2008 Influenza Split 07/27/2009, 6,10/16/2004,2000,10/28/2000 Influenza TIV (IM) 08/15/2015,07/27/2009 Influenza high dose QV(65 ye ars or older) (PF) 09/24/2023,09/12/2022,10/10/2021 Influenza, Seasonal, Injectable 08/31/20 12,07/27/2009,09/11/2006,2003,09/24/2001,10/28/2000 Influenza, Unspecified 08/14/2017,2014,08/31/2012,2010,10/18/2004 PCV13 03/23/2015 PPSV23 05/11/2018,08/24/2009 RZV (SHINGRIX) 01/05/2019,10/14/2018 SARS-COV-2 (COVID-19) - MODE RNA (12 YEARS AND OLDER) Fall Seasonal 09/24/2023 SARS-COV-2 (COVID-19) - MODE RNA BIVALENT(Discontinued) 09/20/2022 SARS-COV-2 (COVID-19) - MODERNA(Discontinued) 07/09/2022,10/01/2021 Tdap 05/12/2023,10/20/2015,01/24/2009 influenza LAIV (Nasal) (2 ye ars through 49 years) 08/17/2013 influenza trivalent LAIV (Na molina) (2 years through 49 years) 08/17/2013 influenza trivalent high dos e (HD)(PF) 07/05/2020,08/27/2018,08/15/2015 influenza trivalent vaccine (6 months and older)(PF) 09/13/2008,10/06/2007 Social History Tobacco Use Types Packs/Day Years Used Date Smoking Tobacco: Former Cigarettes 1.5 27 0 11/17/1962 - 11/17/1989 Passive Smoke Exposure: Past Smokeless Tobacco: Never Tobacco Cessation:Counseling Given: Not Answered Alcohol Use Standard Drinks/Week Comments No 0 (1 standard drink = 0.6 oz pure alcohol) Quit in 1974. Goes to AA meetings. [facility] [employer] Answer Date Recorded In the past 12 months has e [employer] gas, oil, or water [employer] threatened to shut off services in your home? No 02/20/2024 Humiliation, Afraid, Rape, and Kick questionnair e Answer Date Recorded Within the last year, have y ou been afraid of your partner or ex-partner? No 01/23/2024 Within the last year, have y ou been humiliated or emotionally abused in other ways by your partner or ex-partner? No Within the last year, have y ou been kicked, hit, slapped, or otherwise physically hurt by your partner or ex-partner? No 01/23/2024 Within the last year, have y ou been raped or forced to have any kind of sexual activity by your partner or ex-partner? No 01/23/2024 Social Connection and Isolat ion Panel [NHANES] Answer Date Recorded In a typical week, how many times do you talk on the phone with family, friends, or neighbors? Once a week 01/28/2023 How often do you get togethe r with friends or relatives? Once a week 01/28/2023 How often do you attend [facility] or moravian services? Never 01/28/2023 Do you belong to any clubs o r organizations such as temple groups, unions, fraternal or athletic groups, or school groups? Yes 01/28/2023 How often do you attend meet ings of the clubs or organizations you belong to? More than 4 times per year 01/28/2023 Are you , , di vorced, , never , or living with a partner? 01/28/2023 AUDIT-C Answer Date Recorded Q1: How often do you have a drink containing alc ohol? Never 01/28/2023 Average Number of Drinks Not on file 023 Frequency of Binge Drinking Not on file 01/15 Overall Financial Resource Strain (CARDIA) Answe r Date Recorded How hard is it for you to pa y for the very basics like food, housing, medical care, and heating? Not hard at all 01/28/2023 PHQ-2 Answer Date Recorded PHQ-2 Score 1 01/23/2024 [facility] - Occupational Stress Questionnaire Answer Date Recorded Do you feel stress - tense, restless, nervous, or anxious, or unable to sleep at night because your mind is troubled all the time - these days? To some extent 01/28/2023 Exercise Vital Sign Answer Date Recorde d On average, how many days pe r week do you engage in moderate to strenuous exercise (like a brisk walk)? Patient declined On average, how many minutes do you engage in exercise at this level? Patient declined 02/20/2024 Hunger Vital Sign Answer Date Recorded Within the past 12 months, y ou worried that your food would run out before you got the money to buy more. Never true 02/20/20 24 Within the past 12 months, t he food you bought just didn't last and you didn't have money to get more. Never true 02/20/2024 PRAPARE - Transportation Answer Date Re corded In the past 12 months, has l ack of transportation kept you from medical appointments or from getting medications? No 03/2024 In the past 12 months, has l ack of transportation kept you from meetings, work, or from getting things needed for daily living? No 02/20/2024 Nutrition Answer Date Recorded Nutrition: EVOO Fat Source No 02/19 On average, how many serving s of fruits and vegetables do you eat per day (serving size is equal to 1 cup or approximately the size of a tennis ball)? 0-2 02/20/2024 Dental Answer Date Recorded Dental: Regular Dentist Yes 07/04/20 Employment Answer Date Recorded Employment status Retired 02/20/2024 Housing Stability Answer Date Recorded What is your living situation today? I have a [facility] place to live 02/20/2024 Education Answer Date Recorded What is the highest level of school you have completed or the highest degree you have received? Bachelor's degree (e.g., BA, AB, BS) 07/29/2022 Sex and Gender Information Value Date Recorded Sex Assigned at Male 07/29/2022 7:05 PM CDT Legal Sex Male 6:01 AM CHUTE TENDER Gender Identity Male 10/08/2020 6:43 AM CHUTE TENDER Sexual Orientation Straight 10/08/2020 6: 43 AM CHUTE TENDER Last Filed Vital Signs Vital Sign Reading Time Taken Comments Blood Pressure 128/74 01/23/2024 10:23 AM CHUTE TENDER Re check Pulse 76 01/23/2024 10:22 AM CHUTE TENDER Temperature 36.4 C (97.6 F) 01/23/2024 10:22 AM CHUTE TENDER Respiratory Rate 16 01/30/2023 2:23 PM CDT Oxygen Saturation 97% 04/24/2023 2:19 PM CDT Inhaled Oxygen Concentration - - Weight 89.4 kg (197 lb 1.5 oz) 01/23/2024 10:22 AM CHUTE TENDER Height 183 cm (6' 0.05) 01/23/2024 10:22 AM CHUTE TENDER Body Mass Index 26.7 01/23/2024 10:22 AM CHUTE TENDER Plan of Treatment Upcoming Encounters Date Type Department Care Team (Late st Contact Info) Description 01/07/2025 9:00 AM CHUTE TENDER Appointment Department of Laboratory Medicine in [place], [place] [address] [place] [address] Celina Kitchen APRN, C.N.P., D.N.P. [address] [place] [address] 01/17/2025 11:30 AM CHUTE TENDER Appointment Department of Radiation Oncology in [place], [place] [address] [place] [address] Dru Rain M.D. [address] [place] [address] Medical Devices Implanted Type Area Improvement Spec Device Identifier Shelf Expiration Date Model / Serial / Lot Marker Tissue Biomarc Kv 1x5 - [id number] Implanted:Qt y: 4 on 12/03/2022 by Carlos Junior M.D. at [facility] Imaging Marker Prostate [facility] [id number] 05/16/2027 [id number] / / [id number] Ocular Lens-02/27/20 17 Implanted: (Quantity not on file) Ocular Lens Eye Ocular Lens-03/12/20 17 Implanted: (Quantity not on file) Ocular Lens Eye Procedures Procedure Name Priority Date/Time Associated Diagnosis Comments THYROID-STIMULATING HORMONE-SENSITIVE (S-TSH) Routine 07/30/2023 11:28 AM CDT Hypothyroidism US AORTA Routine 05/09/2017 8:58 AM CDT from Last 3 Months or Most Recently Relevant to Health Maintenance Results * US Aorta (05/09/2017 8:58 AM CDT) Anatomical Region Laterality Modality Abdomen, Pelvis N/A Ultrasound 05/09/2017 8:58 AM CDT Addenda Addendum by ProviderBhavya M.D. on 05/09/2017 8:58 AM CDT RAD^^^OW US Abdominal Aorta 05/09/2017 08:58:17 Impressions 05/09/2017 9:18 AM CDT Normal caliber abdominal aorta and bilateral common iliac arteries. Narrative 05/09/2017 9:18 AM CDT EXAM: US Abdominal Aorta AGE: [age] years old. GENDER: Male. INDICATION: screening, previous smoker COMPARISON: None. FINDINGS: Scattered vascular calcifications. Technically limited evaluation of the proximal abdominal aorta due to overlying bowel gas. Proximal abdominal aorta: Normal caliber 2.6 cm x 2.3 cm. Mid abdominal aorta: 2.0 cm x 2.1 cm. Distal abdominal aorta: 1.7 cm x 1.9 cm. Right common artery: 1.3 cm x 1.3 cm. Left common iliac artery: 1.1 cm x 0.9 cm. Procedure Note Adán Arroyo M.D. / Bhavya Rodgers M.D. - 05/23/2017 EXAM: US Abdominal Aorta AGE: [age] years old. GENDER: Male. INDICATION: screening, previous smoker COMPARISON: None. FINDINGS: Scattered vascular calcifications. Technically limited evaluation of the proximal abdominal aorta due to overlying bowel gas. Proximal abdominal aorta: Normal caliber 2.6 cm x 2.3 cm. Mid abdominal aorta: 2.0 cm x 2.1 cm. Distal abdominal aorta: 1.7 cm x 1.9 cm. Right common artery: 1.3 cm x 1.3 cm. Left common iliac artery: 1.1 cm x 0.9 cm. IMPRESSION: Normal caliber abdominal aorta and bilateral common iliac arteries. us Saloni Simons R.V.T. RDanielSFlynn [facility] RUDOL[facility] SUBRAMANIAN Edited Result - Final from Last 3 Months or Most Recently Relevant to Health Maintenance Insurance MEDICARE [facility] Advance Directives For more information, please contact: [phone] * Full Code (Latest Code Status on File) Date Activated Date Inactivated Comments 08/26/2022 8:47 AM 08/26/2022 2:56 PM Question Answer Comments Full Code: Not Discussed Due to: Patient not available Care Teams Pipe Fittings Molder Relationship Specialty Start Date End Date None Reported, Pcp PCP - General Family Medicine 06/16/24
--- OUTSIDE RECORDS SUMMARY | 2024-12-03 19:30 | XMS_ITS | Clinical Summary ---
Author Organization [facility] Address [address] [place] [address] Care Team Providers Care Electric Motor Winders Assembler Name Role Phone None Reported, Pcp Primary Care Provider Unavail able Source Comments Patient records contain information from all sites at [facility]. For routine questions regarding patient records, call [phone] during business hours, M-F 8:00 AM - 5:00 PM Central Time. Record requests for emergency care only can be directed to [phone] at any time.[facility] Allergies Active Allergy Reactions Criticality Noted Date [...] (08/09/2022): Added automatically from request for surgery [id number] Benign Prostatic Hyperplasia Hypertrophy With Ob struction 01/31/2022 Elevated Prostate-Specific Antigen 01/08/2022 Frequency Urinary 10/03/2021 Lesion Larynx 05/11/2019 Chronic Kidney Disease (CKD) , Stage 3a Glomerular Filtration Rate (GFR) 45 To 59 04/15/2019 Assessment & Plan (01/01/2022 3:02 PM SCALE AGENT): Follow up blood labs creatinine/eGFR, potassium and sodium were ordered today, as part of the preoperative exam. Values have been stable. Need Vaccine Immunization 01/05/2019 Primary Osteoarthritis Shoulder Bilateral 2014 Anemia 04/21/2014 Bipolar Disorder 01/20/2014 Overview (05/11/2018): Bipolar disease NOS Overview: Stable Atherosclerotic Heart Diseas e Of [place] Coronary Artery Without Angina Pectoris 01/20/2014 Overview [...] trivalent vaccine (6 months and older)(PF) 09/13/2008,10/06/2007 Family History Medical History Relation Name Comments Colon cancer Brother jenny Colon polyps Brother jenny Depression Brother jenny Prostate cancer Brother jenny Psychiatric Brother jenny Smoker Daughter Flor Coronary artery disease Father jimena age 61 Heart attack Father jimena Alzheimer's disease Mother benson Arthritis Mother benson Dementia Mother benson age 90 Diabetes Mother benson Hypertension Mother benson Hypothyroidism Mother benson Heart disease Mother's Brother Colon cancer Sister pat Colon polyps Sister pat Diabetes Sister pat Hypothyroidism Sister pat Sleep apnea Sister pat Obesity, Unspecified Son 1 Hiram Testicular cancer Son 1 Hiram No Known Problems Son 2 Trevin Relation Name Status Comments Brother jenny Alive Daughter Flor Alive Father jimena (Age 60) Mother benson (Age 90) Mother's Brother Sister prabhakar Alive Son 1 Hiram Alive Son 2 Trevin Alive Social History Tobacco Use Types Packs/Day Years Used Date Smoking Tobacco: Former Cigarettes 1.5 27 0 11/17/1962 - 11/17/1989 Passive Smoke Exposure: Past Smokeless Tobacco: Never Tobacco Cessation:Counseling Given: Not Answered Alcohol Use Standard Drinks/Week Comments No 0 (1 standard drink = 0.6 oz pure alcohol) Quit in 1974. Goes to AA meetings. [facility] Utilities Answer Date Recorded In the past 12 months has e [employer], gas, oil, or water [employer] threatened to shut off services in your [...] week 01/28/2023 How often do you attend chur ch or yarsanism services? Never 01/28/2023 Do you belong to any clubs o r organizations such as bahai groups, unions, fraternal or athletic groups, or [...] Answer Date Recorded PHQ-2 Score 1 01/23/2024 [facility] - Occupational Stress Questionnaire Answer Date Recorded [...] your living situation today? I have a [facility] place to live 02/20/2024 Education Answer Date Recorded What is the highest level of school you have completed or the highest degree you have received? Bachelor's degree (e.g., BA, AB, BS) 07/29/2022 Sex and Gender Information Value Date Recorded Sex Assigned at Male 07/29/2022 7:05 PM CDT Legal Sex Male 6:01 AM SCALE AGENT Gender Identity Male 10/08/2020 6:43 AM SCALE AGENT Sexual Orientation Straight 10/08/2020 6: 43 AM SCALE AGENT Last Filed Vital Signs Vital Sign Reading Time Taken Comments Blood Pressure 128/74 01/23/2024 10:23 AM SCALE AGENT Re check Pulse 76 01/23/2024 10:22 AM SCALE AGENT Temperature 36.4 C (97.6 F) 01/23/2024 10:22 AM SCALE AGENT Respiratory Rate 16 01/30/2023 2:23 PM CDT Oxygen Saturation 97% 04/24/2023 2:19 PM CDT Inhaled Oxygen Concentration - - Weight 89.4 kg (197 lb 1.5 oz) 01/23/2024 10:22 AM SCALE AGENT Height 183 cm (6' 0.05) 01/23/2024 10:22 AM SCALE AGENT Body Mass Index 26.7 01/23/2024 10:22 AM SCALE AGENT Plan of Treatment Upcoming Encounters Date Type Department Care Team (Late st Contact Info) Description 01/07/2025 9:00 AM SCALE AGENT Appointment Department of Laboratory Medicine in [place], [place] [address] [place] [address] Celina Kitchen APRN, C.N.P., D.N.P. [address] [place] [phone] 01/17/2025 11:30 AM SCALE AGENT Appointment Department of Radiation Oncology in [place], [place] [address] [place] [phone] Dru Rain M.D. [address] [place] [phone] Health Maintenance Due Date Last Done Comments RSV vaccine - (32-36 weeks) or 60+ years (1 - 1-dose 75+ series) 2019 COVID-19 Vaccine (2023- season) 2024 09/24/2023, 09/20/2022, 07/09/2022, Additional history exists Influenza Vaccine (#1) 2024 , 09/12/2022, 10/10/2021, Additional history exists Depression Screening (Annual PHQ-2) 11/17/2024 Fall Risk Screen (Annual) 11/17/2024 Office Visit for Blood Pressure Check / Re-check 01/22/2025 01/23/2024 Visit: Chronic Disease, age 18+ 01/22/2025 01/23/2024 Visit: Medicare Annual Wellness 01/23/2025 01/23/2024 Thyroid Stimulating Hormone (TSH) test for thyroid function 09/20/2025 09/20/2024, 07/30/2023, 07/29/2022, Additional history exists DTaP,Tdap,and Td Vaccines (5 - Td or Tdap) 05/12/2033 05/12/2023, 10/20/2015, 01/24/2009, Additional history exists Abdominal Aortic Aneurysm (AAA) Screen Discontinued 05/09/2017, 02/18/2011, 08/26/2008 Pneumococcal vaccine (50+ years) Completed 05/11/2018, 03/23/2015, 08/24/2009 Zoster Vaccines Completed 01/05/2019, 09/18, 01/21/2008 Colonoscopy Discontinued 01/21/2022, 03/17, 03/18/2011 (Performed elsewhere) Colorectal Cancer Surveillance Discontinued CT Colonography Discontinued Cologuard Discontinued HPV Vaccines Aged Out No longer eligi ble based on patient's age to complete this topic IPV Vaccines Aged Out No longer eligi ble based on patient's age to complete this topic Medical Devices Implanted Type Area Sole Seamer Device Identifier Shelf Expiration Date Model / Serial / Lot Marker Tissue Biomarc Kv 1x5 - [id number] Implanted:Qt y: 4 on 12/03/2022 by Carlos Junior M.D. at [facility] Imaging Marker Prostate [facility] [id number] 05/16/2027 [id number] / / [id number] Ocular Lens-02/27/20 17 Implanted: (Quantity not on [...] abdominal aorta and bilateral common iliac arteries. Saloni Simons R.V.T., R.D.MFlynnS. [facility] LANIER RUDOLPH SUBRAMANIAN Edited Result - Final from Last 3 Months or Most Recently Relevant to Health Maintenance Insurance MEDICARE [employer] Advance Directives For more information, please contact: [phone] * Full Code (Latest Code Status on File) Date Activated Date Inactivated Comments 08/26/2022 8:47 AM 08/26/2022 2:56 PM Question Answer Comments Full Code: Not Discussed Due to: Patient not available Care Teams Electric Motor Winders Assembler Relationship Specialty Start Date End Date None Reported, Pcp PCP - General Family Medicine 06/16/24
--- OUTSIDE RECORDS SUMMARY | 2024-12-03 19:30 | XMS_ITS ---
Author Organization [facility] Address [address] [place] [address] Care Team Providers Care Glove Maker Name Role Phone Unavailable Unavailable Unavailable Surgery Details Not on file Complications Check Surgery Details section. Procedure Estimated Blood Loss Check Surgery Details section. Procedure Findings Check Surgery Details section. Procedure Specimens Taken Check Surgery Details section.
--- OUTSIDE RECORDS SUMMARY | 2024-12-03 19:30 | XMS_ITS | Encounter Summary ---
Author Organization [facility] Address [address] [place] [address] Care Team Providers Care Software Engineer Developer Name Role Phone Unavailable Primary Care Provider Unavailabl e Encounter Details Date Type Department Care Team (Late st Contact Info) Description 05/24/2024 Lab Requisition [facility] [address] [facility] [address] Cecilia Morales MBBS [address] [place] [address] Nutritional anemia, unspecified Social History [...] 02/22/2025 11:15 AM CDT Appointment Naina Montalvo [address] [address] [address] [place] [address] Mario Jovel MD [address] [place] [address] Scheduled Orders Name Type Priority Associated Diagnoses Orde r Schedule Folate Only (4Hr Fast Recommended) Lab Routine Nutritional anemia, unspecified Ordered: 05/24/2024 documented as of this encounter Visit Diagnoses Diagnosis Nutritional anemia, unspecified documented in this encounter
--- OUTSIDE RECORDS SUMMARY | 2024-12-03 19:30 | XMS_ITS | Encounter Summary ---
Author Organization [facility] Address [address], [place] [address] Care Team Providers Care Kidney Trimmer Name Role Phone Unavailable Primary Care Provider Unavailabl e Encounter Details Date Type Department Care Team (Late st Contact Info) Description 05/18/2024 Lab Requisition [facility] [address] [facility] [facility] [place], [place] [id number] Cecilia Morales [address] [place] [address] Vitamin D deficiency, unspecified (HRC) Social History [...] 11:15 AM CDT Appointment Naina Alyson Montalvo [address] [address] [address] [place] [phone] Mario Jovel MD [address] [place] [address] documented as of this encounter Procedures Procedure Name Priority Date/Time Associated Diagnosis Comments CBC AND DIFFERENTIAL PANEL Routine 05/19/2024 7:34 AM CDT Vitamin D deficiency, unspecified (HRC) COMPLETE BLOOD COUNT-W/DIFF Routine 05/19/2024 7:34 AM CDT Vitamin D deficiency, unspecified (HRC) BASIC METABOLIC PANEL Routine 05/19/2024 7:34 AM CDT Vitamin D deficiency, unspecified (HRC) documented in this encounter Results * (ABNORMAL) Complete Blood Count-W/Diff (05/19/2024 7:34 AM CDT) WBC 6.8 3.5 - 10.5 x10(9)/L 05/19/2024 12:04 PM CDT [facility] RBC 3.71(L) 4.32 - 5.72 x10(12)/L 05/19/2024 12:04 PM CDT [facility] Hemoglobin 12.2(L) 13.5 - 17.5 g/dL 05/19/2024 12:04 PM CDT [facility] HCT 40.4 38.8 - 50.0 % 05/19/2024 12:04 PM CDT [facility] MCV 108.9(H) 80.0 - 100.0 fL 05/19/2024 12:04 PM CDT [facility] MCH 32.9 27.6 - 33.3 pg 05/19/2024 12:04 PM CDT [facility] MCHC 30.2(L) 31.5 - 35.2 g/dL 05/19/2024 12:04 PM CDT [facility] RDW 14.2 11.9 - 15.5 % 05/19/2024 12:04 PM CDT [facility] Platelets 248 150 - 450 x10(9)/L 05/19/2024 12:04 PM CDT [facility] Automated NRBC 0 <=0 /100 WBC 05/19/2024 12:04 PM CDT [facility] Neutrophil Absolute 4.5 1.7 - 7.0 10(9)/L 05/19/2024 12:04 PM CDT [facility] Lymphocyte Absolute 1.1 1.0 - 4.8 10(9)/L 05/19/2024 12:04 PM CDT [facility] Monocyte Absolute 0.4 0.2 - 0.9 10(9)/L 05/19/2024 12:04 PM CDT [facility] Eosinophil Absolute 0.7(H) 0.0 - 0.5 10(9)/L 05/19/2024 12:04 PM CDT [facility] Basophil Absolute 0.0 0.0 - 0.3 10(9)/L 05/19/2024 12:04 PM CDT [facility] Immature Granulocyte % 0.1 0.0 - 0.5 % 05/19/2024 12:04 PM CDT [facility] Blood Venipuncture / Unknown 05/19/2024 7:34 AM CDT 05/19/2024 12:01 PM CDT Cecilia Morales LAB_[facility] [address] * (ABNORMAL) Basic Metabolic Panel (05/19/2024 7:34 AM CDT) Sodium 145 136 - 145 mmol/L 05/19/2024 12:19 PM CDT [facility] Potassium 4.8 3.5 - 5.1 mmol/L 05/19/2024 12:19 PM CDT [facility] Chloride 112(H) 98 - 109 mmol/L 05/19/2024 12:19 PM CDT [facility] CO2 27 20 - 29 mmol/L 05/19/2024 12:19 PM CDT [facility] Anion Gap 6 6 - 16 mmol/L 05/19/2024 12:19 PM CDT [facility] Calcium 9.5 8.4 - 10.4 mg/dL 05/19/2024 12:19 PM CDT [facility] BUN 18 7 - 26 mg/dL 05/19/2024 12:19 PM CDT [facility] Creatinine 1.25(H) 0.73 - 1.18 mg/dL 05/19/2024 12:19 PM CDT [facility] Glucose 86 70 - 100 mg/dL 05/19/2024 12:19 PM CDT [facility] Comment:The given reference range is for the fasting state. Non-fasting reference range for glucose is 70 - 180 mg/dL. GFR, Estimated 59(L) >60 mL/min/1.7 3m2 05/19/2024 12:19 PM CDT [facility] Comment:>60 Hours Fasting 0.1 8 - 12 Hours 05/19/2024 12:19 PM CDT [facility] Comment:Lab unable to obtain patient's fasting status at time of specimen collection. Blood Venipuncture / Unknown 05/19/2024 7:34 AM CDT 05/19/2024 12:01 PM CDT Cecilia Andrew [facility] [address] documented in this encounter Visit Diagnoses Diagnosis Vitamin D deficiency, unspecified (HRC) documented in this encounter
--- OUTSIDE RECORDS SUMMARY | 2024-12-03 19:30 | XMS_ITS | Encounter Summary ---
Author Organization [facility] Address [address] [place] [address] Care Team Providers Care Wirer Street Light Name Role Phone Unavailable Primary Care Provider Unavailabl e Encounter Details Date Type Department Care Team (Late st Contact Info) Description 05/13/2024 Lab Requisition [facility] [address] [facility] [place], [place] [id number] Cecilia Morales [address] [place] [address] Vitamin D deficiency, unspecified (HRC) Social History [...] 11:15 AM CDT Appointment Naina Alyson Montalvo [address] [address] [address] [place] [phone] Mario Jovel MD [address] [place] [address] documented as of this encounter Procedures Procedure Name Priority Date/Time Associated Diagnosis Comments VITAMIN D 25-HYDROXY, TOTAL Routine 05/14/2024 8:39 AM CDT Vitamin D deficiency, unspecified (HRC) documented in this encounter Results * Vitamin D 25-Hydroxy, Total (05/14/2024 8:39 AM CDT) Vitamin D, 25-OH, Total 54 30 - 80 ng/mL 05/14/2024 1:18 PM CDT [facility] Blood Venipuncture / Unknown 05/14/2024 8:39 AM CDT 05/14/2024 12:45 PM CDT Cecilia Andrew [facility] [address] documented in this encounter Visit Diagnoses Diagnosis Vitamin D deficiency, unspecified (HRC) documented in this encounter
--- OUTSIDE RECORDS SUMMARY | 2024-12-03 19:30 | XMS_ITS | Clinical Summary ---
Author Organization [facility] Address [address] [place] [address] Phone Care Team Providers Care Manager Specialty Name Role Phone Angel Morrell MD Primary Care Provider [phone] Anthony Ventura CCC Unavailable [phone] Source Comments [employer] is fully rolled out on [employer]. Last update 04/21/09.[facility] Allergies Active Allergy Reactions Criticality Noted Date Comments Ciprofloxacin Fatigue Low 04/16/2024 & drowsiness Medications * Be aware that medications may not be up to date as of this document. Always verify current medications with patient. diclofenac (VOLTAREN) 1 % externally gelIndications: Hip pain Indications: Hip painApply to: Hip and shoulder pain. 05/04/20 24 Active levothyroxine (SYNTHROID) 137 mcg oral tabletIndicatio ns:Hypothyroidi sm Take 1 tablet (137 mcg) by mouth daily before morning meal. Indications: Underactive Thyroid 05/05/20 24 Active lidocaine (LIDODERM) 5% externally patchIndication s:pain Indications: painApply for 12 hours then remove for 12 hours 05/05/20 24 Active polyethylene glycol 3350 (MIRALAX;GLYCOL AX) 17 g oral packetIndicatio ns:Constipation Take 17 g by mouth daily as needed for Constipation. Indications: ConstipationTake 1 capful to 17 gm rubio mixed with full glass of water every day as directed. 05/04/20 24 Active sennosides (SENOKOT) 17.2 mg oral TABSIndications :Constipation Take 1 tablet (17.2 mg) by mouth twice daily as needed (For constipation). Indications: Constipation 05/04/20 Active atorvastatin (LIPITOR) 20 mg oral tabletIndicatio ns:Hyperlipidem ia Take 1 tablet (20 mg) by mouth at bedtime. Indications: High Amount of Fats in the Blood 05/05/20 Active acetaminophen (TYLENOL) 325 mg oral tabletIndicatio ns:Pain Take 3 tablets (975 mg) by mouth 3 times daily. Indications: Pain 05/05/20 Active buPROPion (WELLBUTRIN) 75 mg oral TABSIndications :bipolar disorder, mood disorder Take 2 tablets (150 mg) by mouth 3 times daily. Indications: bipolar disorder, mood disorder 05/05/20 Active GABApentin (NEURONTIN) 300 mg oral capsuleIndicati ons:Neuropathic Pain Take 2 capsules (600 mg) by mouth 3 times daily. Indications: Neuropathic Pain 05/05/20 Active lithium carbonate 300 mg oral capsuleIndicati ons:Bipolar Mood Disorder Take 1 capsule (300 mg) by mouth Every 48 hours. Indications: Manic-DepressionGIVE AT 08:00am 05/06/20 Active lithium carbonate 300 mg oral capsuleIndicati ons:Bipolar Mood Disorder Take 1 capsule (300 mg) by mouth at bedtime. Indications: Manic-Depression 05/05/20 Active melatonin 3 mg oral tabletIndicatio ns:Insomnia Take 1 tablet (3 mg) by mouth every twenty-four hours. Indications: Trouble Sleeping 05/05/20 Active midodrine (PROAMATINE) 5 mg oral TABSIndications :Orthostatic Hypotension Take 1 tablet (5 mg) by mouth twice daily. Indications: Blood Pressure Drop Upon Standing 05/05/20 Active milk of magnesia 400 mg/5 mL oral suspensionIndic ations:Constipa tion Take 30 mL by mouth daily as needed for Constipation. Indications: Constipation 05/05/20 Active Active Problems Problem Noted Date Diagnosed Date Traumatic brain injury, with out loss of consciousness, initial encounter ([facility]) 05/05/2024 Major neurocognitive disorder ([facility]) 04/27/2024 Depression, unspecified depression type 04/22/20 Fall, initial encounter 04/17/2024 Social History Tobacco Use Types Packs/Day Years Used Date Smoking Tobacco: Former Cigarettes Smokeless Tobacco: Never Tobacco Cessation:Counseling Given: Not Answered Humiliation, Afraid, Rape, and Kick questionnair e Answer Date Recorded Within the last year, have y ou been afraid of your partner or ex-partner? No 04/19/2024 Within the last year, have y ou been humiliated or emotionally abused in other ways by your partner or ex-partner? No Within the last year, have y ou been kicked, hit, slapped, or otherwise physically hurt by your partner or ex-partner? No 04/19/2024 Within the last year, have y ou been raped or forced to have any kind of sexual activity by your partner or ex-partner? No 04/19/2024 Overall Financial Resource Strain (CARDIA) Answe r Date Recorded How hard is it for you to pa y for the very basics like food, housing, medical care, and heating? Not hard at all 04/19/2024 Hunger Vital Sign Answer Date Recorded Within the past 12 months, y ou worried that your food would run out before you got the money to buy more. Never true 04/19/20 24 Within the past 12 months, t he food you bought just didn't last and you didn't have money to get more. Never true 04/19/2024 PRAPARE - Transportation Answer Date Re corded In the past 12 months, has l ack of transportation kept you from medical appointments or from getting medications? No 01/2024 In the past 12 months, has l ack of transportation kept you from meetings, work, or from getting things needed for daily living? No 04/19/2024 Housing Stability Answer Date Recorded What is your housing situation today? 3 - I have housing 04/19/2024 Sex and Gender Information Value Date Recorded Sex Assigned at Not on file Legal Sex Male 6:41 PM CDT Gender Identity Not on file Sexual Orientation Not on file Last Filed Vital Signs Vital Sign Reading Time Taken Comments Blood Pressure 130/74 06/02/2024 8:55 AM CDT Pulse 69 06/02/2024 8:55 AM CDT Temperature 36.2 C (97.2 F) 05/05/2024 7:20 AM CDT Respiratory Rate 20 05/05/2024 7:20 AM CDT Oxygen Saturation 98% 05/24/2024 9:2 6 AM CDT room air, at rest. Inhaled Oxygen Concentration - - Weight 79.9 kg (176 lb 3 oz) 05/24/2024 9:26 AM CDT Height 187.6 cm (6' 1.86) 05/24/2024 9 :26 AM CDT Body Mass Index 22.71 05/24/2024 9:26 AM CDT Plan of Treatment Health Maintenance Due Date Last Done Comments Dental Oral Exam 1944 Dental Prophylaxis 1944 Dental X-Ray: Bitewings 1944 Depression Management 1944 Periodontal Maintenance 1958 HEALTH MAINTENANCE PROTOCOL 1963 Imm: Pneumonia greater than 65 years (2 of 2 - PCV) 05/11/2019 05/11/2018, 08/24/2009 PREVENTATIVE VISIT 06/09/2020 06/09/2019, 05/11/2018 Imm: COVID-19 ( season) 2024 09/24/2023, 09/20/2022, 07/09/2022, Additional history exists Imm: Flu (#1) 07/18/2024 09/24/2023, 08/18, 10/10/2021, Additional history exists Medicare Annual Wellness 01/22/2025 024, 11/05/2019, 11/04/2018 Imm: DTaP/Tdap (5 - Td or Tdap) 05/12/2033 05/12/2023, 10/20/2015, 01/24/2009, Additional history exists Imm: Zoster Completed 01/05/2019, 10/14/2018 Osteoporosis Screening (Dexa Scan) Completed 02/06/2023 Imm: HPV Aged Out No longer eligi ble based on patient's age to complete this topic Imm: HepA Aged Out No longer eligi ble based on patient's age to complete this topic Imm: HepB Aged Out No longer eligi ble based on patient's age to complete this topic Imm: Hib Aged Out No longer eligi ble based on patient's age to complete this topic Imm: Meningitis Aged Out No longer el igible based on patient's age to complete this topic Insurance [facility] [phone] [place] [address] MEDICARE [facility] Advance Directives For more information, please contact: [phone] * Full Code (Latest Code Status on File) Date Activated Date Inactivated Comments 04/19/2024 2:21 PM 05/05/2024 9:51 PM Question Answer Comments Does the Patient have prefer ences regarding life sustaining measures (these options only apply when the patient has a pulse): No Discussed Code Status With Whom? Patient * Full Code Date Activated Date Inactivated Comments 04/17/2024 12:46 AM 04/19/2024 2:14 PM Question Answer Comments Does the Patient have prefer ences regarding life sustaining measures (these options only apply when the patient has a pulse): No Discussed Code Status With Whom? Not discussed Care Teams Manager Specialty Relationship Specialty Start Date End Date Angel Morrell MD [address] [place] [address] PCP - General 04/20/24 Anthony Ventura, RESPIRATORY THERAPIST ASSISTANT CCC [address] [place] [address] Speech Pathologist Speech Pathology 06/03/24
--- OUTSIDE RECORDS SUMMARY | 2024-12-03 19:30 | XMS_ITS | Referral Summary ---
Author Organization [facility] Address [address] [place] [address] Phone Care Team Providers Care Business Consult Name Role Phone Angel Morrell MD Primary Care Provider [phone] Anthony Ventura CCC Unavailable [phone] Source Comments [employer] is fully rolled out on [employer]. Last update 04/21/09.[facility] Allergies Active Allergy Reactions Criticality Noted Date [...] with out loss of consciousness, initial encounter ([facility]) 05/05/2024 Major neurocognitive disorder ([facility]) 04/27/2024 Depression, unspecified depression type 04/22/20 Fall, [...] 05/24/2024 9:26 AM CDT Plan of Treatment Not on file Insurance [facility] [id number] [place] [address] MEDICARE [facility] Advance Directives For more information, please contact: [phone] * Full Code (Latest Code Status on [...] Status With Whom? Not discussed Care Teams Business Consult Relationship Specialty Start Date End Date Angel Morrell MD [address] [place] [phone] PCP - General 04/20/24 Anthony Ventura, INDUSTRIAL RELATIONS OFFICER [address] [address] Speech Pathologist Speech Pathology 06/03/24
--- NOTE | 2024-12-03 19:31 | ED_ITS ---
HPI - General Adult General Chief complaint: Back Injury/Pain Stated complaint: lower back pain Time Seen by Provider: 12/03/24 18:49 Source: patient and family Mode of arrival: ambulatory History of Present Illness HPI narrative: 7-year-old male with a history of memory impairment presents to the emergency department as a new patient for evaluation of a flare up of back pain for the past 10 days. He has a history of chronic back pain and has experienced multiple flares in his life. He reports that this flare is no different than his typical but it is lasting longer than usual. The family tells me that he has had several falls in the last few years, his records are at [facility] or [facility]. He has had several scans done in the last few years and he has known osteoarthritis of the back. He has had 2 back surgeries in the which sound like diskectomies and has not had any prior history of chronic weakness. He does have chronic numbness in his left foot which he states is unchanged. Pain is located in the mid lower lumbar area. It sounds like he saw his primary care provider earlier this week. He lives in [facility] which is an assisted living and memory care unit over in [place]. The provider that comes there is a traveling provider that has private medical records and we do not have access to those. It does not sound as though he has had imaging performed in the last few weeks but he did have a scan 6 months ago, the indications for what are unclear but it sounds as though he was diagnosed with a kidney tumor and they have elected for conservative management on that and he has a follow-up coming up in a few weeks to recheck that. Denies prior back injections. Not currently in physical therapy. Pain does not radiate. There is no saddle numbness, no loss of bowel or bladder function. No nausea or vomiting, no fever. He has tried Lidoderm patches any takes Tylenol t.i.d.. Patient is accompanied by his son. They both admit that this is not the adult child that will help manage me dical problems for the patient. They are both very spotty historians for his chronic medical problems, recent scans, medications and history. No falls in the last few weeks. They tell me that his past medical history is mostly notable for bipolar disorder. His medication list is coming over from [facility]. Two prior back surgeries as stated, no prior back fractures. No injections or recent input from a clinical services specialist. ROS is notable for the musculoskeletal symptoms as above but denies any intra- abdominal, skin, GI, urinary or other neurological changes. Related Data Home Medications ?Medication ?Instructions ?Recorded ?Confirmed amlodipine 5 mg tablet mg DAILY 12/03/24 atorvastatin 20 mg tablet mg 12/03/24 bupropion HCl 75 mg tablet mg PO 12/03/24 gabapentin 300 mg capsule mg 12/03/24 levothyroxine 137 mcg tablet mcg 12/03/24 lithium carbonate 300 mg capsule mg 12/03/24 memantine 10 mg tablet mg 12/03/24 quetiapine 25 mg tablet mg 12/03/24 quetiapine 50 mg tablet mg 12/03/24 tamsulosin 0.4 mg capsule mg PO 12/03/24 Previous Rx's ?Medication ?Instructions ?Recorded cyclobenzaprine 5 mg tablet 5 mg PO QHS PRN muscle spasm #5 12/03/24 tabs prednisone 20 mg tablet 20 mg PO DAILY #5 tabs 12/03/24 tramadol 50 mg tablet 50 mg PO TID PRN pain #10 tabs 12/03/24 Allergies Allergy/AdvReac Type Severity Reaction Status Date / Time ciprofloxacin Allergy Mild Drowsy Verified 12/03/24 18:03 PFSH [facility] Social History Smoking Status: Never smoker How often do you have a drink containing alcohol: monthly or less AUDIT-C Alcohol total score: 1 Non-prescribed substance use: denies use Exam Const: Vital Signs, click to edit/add: Vital Signs - 24 hr 12/03/24 17:34 12/03/24 19:25 Temperature 99.1 F 98.8 F Pulse Rate [Pulse Oximeter] 76 80 Respiratory Rate 16 18 Blood Pressure [Ri ght Upper Arm] 139/78 145/81 H Pulse Oximetry 95 92 Oxygen Delivery Me thod Room Air Room Air Documenting provider has reviewed patient's vital signs: yes Common normals: alert General appearance: well kempt Other: Mild distress from pain. Moderate historian at best. Cooperative. Well hydrated well nourished. HENMT: Common normals: normocephalic, head/scalp atraumatic, moist oral mucous membranes and oropharynx normal Head and scalp: normocephalic and atraumatic Mouth: oral and palatal mucosa normal Eye: Common normals: conjunctivae normal General eye: normal appearance of both eyes Conjunctiva: conjunctiva(e) normal Resp: Common normals: normal respiratory effort and clear to auscultation bilaterally Effort & inspection: able to speak in complete sentences Auscultation: clear to auscultation bilaterally Cardio: Common normals: regular rate, regular rhythm, S1 normal heart sound, S2 normal heart sound and no murmurs Rate: regular rate Rhythm: regular rhythm Heart sounds: S1 normal and S2 normal Back & Pelvis: Other: Lidoderm patch in place. Mild tenderness to palpation along L3 and L4. No obvious deformity. No bruising or signs of trauma. Mild tenderness to the paraspinal muscles but no tenderness over the SI joints. Straight leg lift is negative. He does have 5/5 strength in the lower extremities flexors and extensors. He requires assistance to sit up due to pain but truncal support and neurological function seems intact. Extremity: Common normals: no pedal edema Neuro: Sensorium/orientation: alert Psych: Appearance: well kempt Insight: fair Judgement: fair Skin: Common normals: no rashes or lesions noted General skin exam: no rashes or lesions noted Course Course ED Course: 7-year-old male with exacerbation of chronic back pain with prior reported history of osteoarthritis of the back. No new injury or trauma and no red flags on exam that would lead to suspicion for a spinal emergency. Counseled patient and his son that we certainly could do imaging here we do have a significant backup of patient's right now and it would take several hours and I am not sure of the utility of this as it would be difficult to coordinate in comparison to his previous imaging studies into help his primary care team with long-term planning. They are understanding of this. We discussed empiric treatment with prednisone and pain medication. We extensively discussed the risks and benefits of prednisone which is an excellent anti-inflammatory but it may worsen his mental health issues and cause insomnia. We discussed how he has had frequent falls in the last few years and muscle relaxants and narcotics are certainly going to increase his risk of fall. They both agree that with his level of pain and his frustration with conservative treatments that have been tried, they are willing to accept the risks of those medications. He will be given 40 mg of prednisone here in the ED, 5 of cyclobenzaprine, 10 of Toradol and 50 of tramadol. He will be discharged on 20 mg once daily prednisone for 5 days, tramadol t.i.d. p.r.n., continue on Tylenol 1000 t.i.d. and Flexeril 5 mg at bedtime for up to 5 days. They are to call his primary care team Friday morning to set up repeat consult and determination if different treatment is needed. Alarm symptoms reviewed that would warrant ED presentation. They verbalized understanding and agreement. Vital Signs Vital signs: Initial Vital Signs Temperature 99.1 F 12/03/24 17:34 Temperature Source Temporal Artery Scan 12/03/24 17:34 Pulse Rate 76 12/03/24 17:34 Pulse Rhythm Regular 12/03/24 17:34 Respiratory Rate 16 12/03/24 17:34 Blood Pressure 139/78 12/03/24 17:34 Blood Pressure Mean 98 12/03/24 17:34 Blood Pressure Position Sitting 12/03/24 17:34 Pulse Oximetry 95 12/03/24 17:34 Oxygen Delivery Method Room Air 12/03/24 17:34 Vital Signs Temperature 99.1 F 12/03/24 17:34 Pulse Rate 76 12/03/24 17:34 Respiratory Rate 16 12/03/24 17:34 Blood Pressure 139/78 12/03/24 17:34 Pulse Oximetry 95 12/03/24 17:34 Oxygen Delivery Method Room Air 12/03/24 17:34 Temperature 98.8 F 12/03/24 19:25 Pulse Rate 80 12/03/24 19:25 Respiratory Rate 18 12/03/24 19:25 Blood Pressure 145/81 H 12/03/24 19:25 Pulse Oximetry 92 12/03/24 19:25 Oxygen Delivery Method Room Air 12/03/24 19:25 Discharge Plan Discharge Clinical Impression: Strain of lumbar region Patient Disposition: Home w/ Parent or Adult Condition: Stable Instructions: Degenerative Disc Disease (ED) Additional Instructions: Your exam is consistent with chronic arthritis in the back. Unfortunately, these things will flare up from time to time. I am not seeing any signs of a spinal cord emergency tonight. Unfortunately, I do not have access to the previous scans that you have had done at other hospitals for comparison. Since there was no new trauma or injury, I do not think doing the scans as a comparison will be helpful. It is important that you are following up with her primary care team about the next steps in management of this chronic condition and plan to manage your flare ups. As we discussed, the Tylenol and Lidoderm patches that your primary care team prescribed are absolutely the safest options. Since those are not meeting her needs, I can offer you more aggressive treatment but it does have some down sides. First, I will be putting you on prednisone. He will take 1 pill daily, preferably around lunchtime. Try not to take this within 3 hours of bedtime as it can cause insomnia. This may worsen dementia, cause some irritability and insomnia. But it has a tremendous affect calm down inflammation in the spine and joints. He will be on this for 5 days. I will give you a prescription for some tramadol, this is a narcotic pain medication. You may take this up to 3 times daily for back pain. Please remember to max out your Tylenol before using any of the tramadol. Discontinue the tramadol as soon as possible once you do not need it. Remember that as we discussed, all opioid pain medications may worsen confusion, and increased risk of falls. I have also given you a few nights of cyclobenzaprine, a muscle relaxant that will help you sleep and less in your back pain. Like the pain medicine, this may cause unsteadiness on your feet and confusion. It may also put you at risk of urinary retention. Try to wean off of it as soon as possible. Activity Level: Activity as Tolerated Discharge Diet: Regular Prescriptions: New prednisone 20 mg tablet 20 mg PO DAILY Qty: 5 0RF cyclobenzaprine 5 mg tablet 5 mg PO QHS PRN (Reason: muscle spasm) Qty: 5 0RF tramadol 50 mg tablet 50 mg PO TID PRN (Reason: pain) Qty: 10 0RF No Action quetiapine 25 mg tablet levothyroxine 137 mcg tablet Patient Comments: [NO ORIGINAL SIG] atorvastatin 20 mg tablet Patient Comments: [NO ORIGINAL SIG] amlodipine 5 mg tablet DAILY tamsulosin 0.4 mg capsule PO Patient Comments: [NO ORIGINAL SIG] lithium carbonate 300 mg capsule Patient Comments: [NO ORIGINAL SIG] bupropion HCl 75 mg tablet PO Patient Comments: [NO ORIGINAL SIG] gabapentin 300 mg capsule Patient Comments: [NO ORIGINAL SIG] memantine 10 mg tablet quetiapine 50 mg tablet Follow Up/Referrals: Provider,Not a Local [Primary Care Provider] - Stand Alone Forms: [facility] Info Instructions
--- OUTSIDE RECORDS SUMMARY | 2024-12-03 19:31 | XMS_ITS | Encounter Summary ---
Author Organization [facility] Address [address] [place] [address] Care Team Providers Care Lump Room Supervisor Name Role Phone None Reported, Pcp Primary Care Provider Unavail able Encounter Details Date Type Department Care Team (Late st Contact Info) Description 03/10/2017 Historical Ophthalmology [facility] Damir Robles Jr., M.D. [address] [address] Social History Tobacco Use Types Packs/Day Years Used Date Smoking Tobacco: Former Sex and Gender Information Value Date Recorded Sex Assigned at Male 07/29/2022 7:05 PM CDT Legal Sex Male 6:01 AM TRAINING INTERN Gender Identity Male 10/08/2020 6:43 AM TRAINING INTERN Sexual Orientation Straight 10/08/2020 6: 43 AM TRAINING INTERN documented as of this encounter Progress Notes * Damir Robles M.D. - 03/10/2017 8:06 AM CDT Eye General CHIEF COMPLAINT one week post cataract left eye HISTORY OF PRESENT ILLNESS Cataract surgery 02/26/17, Aiden CONNORS. Left eye is doing good. Can see things he never knew existed. One week medication schedule reviewed with Rudy. IMPRESSION / REPORT / PLAN #1 s/p KPE with IOL OS Doing well Taper meds #2 NSC OD Trouble with reading, glare, driving OK for KPE with iOL OD RB discussed, IC given, OK proceeed with planned procedure Symfony MF DIAGNOSIS #1 s/p KPE with IOL OS #2 NSC OD CDM Reports - EYEGEN Id: [id number] Status: Fnl documented in this encounter Plan of Treatment Upcoming Encounters Date Type Department Care Team (Late st Contact Info) Description 01/07/2025 9:00 AM TRAINING INTERN Appointment Department of Laboratory Medicine in [place], [place] [address] [place] [address] Celina Kitchen APRN, C.N.P., D.N.P. [address] [place] [phone] 01/17/2025 11:30 AM TRAINING INTERN Appointment Department of Radiation Oncology in [place], [place] [address] [place] [address] Dru Rain M.D. [address] [place] [address] documented as of this encounter Visit Diagnoses Not on filedocumented in this encounter Additional Health Concerns Infection Onset Date Last Indicated Resolved Time COVID19 Pending 09/01/2021 09/02/2021 09/02/2021 1 1:07 PM CDT COVID19 Pending 01/17/2022 01/18/2022 01/18/2022 1 1:54 PM TRAINING INTERN Assessment Noted Time PHQ-9 Depression Total Score: 2 06/23/20 14 2:01 PM CDT documented as of this encounter Care Teams Lump Room Supervisor Relationship Specialty Start Date End Date None Reported, Pcp PCP - General Family Medicine 06/16/24 documented as of this encounter
--- OUTSIDE RECORDS SUMMARY | 2024-12-03 19:31 | XMS_ITS | Encounter Summary ---
Author Organization [facility] Address [address] [place] [address] Care Team Providers Care Game Design Instructor Name Role Phone None Reported, Pcp Primary Care Provider Unavail able Encounter Details Date Type Department Care Team (Late Contact Info) Description 02/27/2017 Historical Ophthalmology [facility] Damir Robles Jr., M.D. [address] [address] Social History Tobacco Use Types Packs/Day Years Used Date Smoking Tobacco: Former Sex and Gender Information Value Date Recorded Sex Assigned at Male 07/29/2022 7:05 PM CDT Legal Sex Male 6:01 AM BESSEMER CONVERTER OPERATOR Gender Identity Male 10/08/2020 6:43 AM BESSEMER CONVERTER OPERATOR Sexual Orientation Straight 10/08/2020 6: 43 AM BESSEMER CONVERTER OPERATOR documented as of this encounter Progress Notes * Damir Robles M.D. - 02/27/2017 7:22 AM CDT Eye General HISTORY OF PRESENT ILLNESS 1 day post op KPE with IOL Left -Last night had a few stabs of pain, has subsided. IMPRESSION / REPORT / PLAN #1 s/p KPE with iOL OS Doing well Drops per protocol RTO 1 week DIAGNOSIS #1 s/p KPE with iOL OS CDM Reports - EYEGEN Id: [id number] Status: Fnl documented in this encounter Plan of Treatment Upcoming Encounters Date Type Department Care Team (Late Contact Info) Description 01/07/2025 9:00 AM BESSEMER CONVERTER OPERATOR Appointment Department of Laboratory Medicine in [place], [place] [address] [place] [address] Celina Kitchen APRN, C.N.P., D.N.P. [address] [place] [address] 01/17/2025 11:30 AM BESSEMER CONVERTER OPERATOR Appointment Department of Radiation Oncology in [place], [place] [address] [place] [phone] Dru Rain M.D. [address] [place] [address] documented as of this encounter Visit Diagnoses Not on filedocumented in this encounter Additional Health Concerns Infection Onset Date Last Indicated Resolved Time COVID19 Pending 09/01/2021 09/02/2021 09/02/2021 1 1:07 PM CDT COVID19 Pending 01/17/2022 01/18/2022 01/18/2022 1 1:54 PM BESSEMER CONVERTER OPERATOR Assessment Noted Time PHQ-9 Depression Total Score: 2 06/23/20 14 2:01 PM CDT documented as of this encounter Care Teams Game Design Instructor Relationship Specialty Start Date End Date None Reported, Pcp PCP - General Family Medicine 06/16/24 documented as of this encounter
--- OUTSIDE RECORDS SUMMARY | 2024-12-03 19:31 | XMS_ITS | Encounter Summary ---
Author Organization [facility] Address [address] [place] [address] Care Team Providers Care Rubber Covering Machine Operator Name Role Phone None Reported, Pcp Primary Care Provider Unavail able Encounter Details Date Type Department Care Team (Late st Contact Info) Description 04/09/2017 Historical Ophthalmology [facility] Damir Robles Jr., M.D. [address] [address] Social History Tobacco Use Types Packs/Day Years Used Date Smoking Tobacco: Former Sex and Gender Information Value Date Recorded Sex Assigned at Male 07/29/2022 7:05 PM CDT Legal Sex Male 6:01 AM ORE CRUSHING DUST COLLECTOR Gender Identity Male 10/08/2020 6:43 AM ORE CRUSHING DUST COLLECTOR Sexual Orientation Straight 10/08/2020 6: 43 AM ORE CRUSHING DUST COLLECTOR documented as of this encounter Progress Notes * Damir Robles M.D. - 04/09/2017 12:52 PM CDT Eye General HISTORY OF PRESENT ILLNESS s/p KPE with IOL Smyphony MF Lenses Rt 03/12/17 and Lt 02/26/17-Pt uses light box for depression. Questioning about using it with his eyes. IMPRESSION / REPORT / PLAN #1 s/p KPE with IOL OU Symfony MF OU Doing well RTO 6 months, Dr. Pacheco Readers + 1.00 DIAGNOSIS #1 s/p KPE with IOL OU CDM Reports - EYEGEN Id: [id number] Status: Fnl documented in this encounter Plan of Treatment Upcoming Encounters Date Type Department Care Team (Late st Contact Info) Description 01/07/2025 9:00 AM ORE CRUSHING DUST COLLECTOR Appointment Department of Laboratory Medicine in [place], [place] [address] [place] [address] Celina Kitchen APRN, C.N.P., D.N.P. [address] [place] [phone] 01/17/2025 11:30 AM ORE CRUSHING DUST COLLECTOR Appointment Department of Radiation Oncology in [place], [place] [address] [place] [phone] Dru Rain M.D. [address] [place] [address] documented as of this encounter Visit Diagnoses Not on filedocumented in this encounter Additional Health Concerns Infection Onset Date Last Indicated Resolved Time COVID19 Pending 09/01/2021 09/02/2021 09/02/2021 1 1:07 PM CDT COVID19 Pending 01/17/2022 01/18/2022 01/18/2022 1 1:54 PM ORE CRUSHING DUST COLLECTOR Assessment Noted Time PHQ-9 Depression Total Score: 2 06/23/20 14 2:01 PM CDT documented as of this encounter Care Teams Rubber Covering Machine Operator Relationship Specialty Start Date End Date None Reported, Pcp PCP - General Family Medicine 06/16/24 documented as of this encounter
--- OUTSIDE RECORDS SUMMARY | 2024-12-03 19:31 | XMS_ITS | Encounter Summary ---
Author Organization [facility] Address [address] [place] [address] Care Team Providers Care Classifications Officer Cc/Cm Name Role Phone None Reported, Pcp Primary Care Provider Unavail able Encounter Details Date Type Department Care Team (Late st Contact Info) Description 02/17/2017 Historical Ophthalmology [facility] Damir Robles Jr., M.D. [address] [address] Social History Tobacco Use Types Packs/Day Years Used Date Smoking Tobacco: Former Sex and Gender Information Value Date Recorded Sex Assigned at Male 07/29/2022 7:05 PM CDT Legal Sex Male 6:01 AM NEURODIAGNOSTIC TECHNICIAN Gender Identity Male 10/08/2020 6:43 AM NEURODIAGNOSTIC TECHNICIAN Sexual Orientation Straight 10/08/2020 6: 43 AM NEURODIAGNOSTIC TECHNICIAN documented as of this encounter Progress Notes * Damir Robles M.D. - 02/17/2017 9:25 AM CDT Eye General CHIEF COMPLAINT Pre- Op Left Eye HISTORY OF PRESENT ILLNESS Pt is scheduled for cataract surgery, left eye on 02/26 Pt would like to get his Right eye scheduled before he leaves today. IMPRESSION / REPORT / PLAN #1 Clinically signifcant cataract ou Trouble with vision for all activities, glare- trouble reading, driving. RB discussed, IC given OK to proceed with KPE with IOL OS OK to schedule KPE with IOL OD OK for Symfony MF DIAGNOSIS #1 Clinically signifcant cataract ou CDM Reports - EYEGEN Id: [id number] Status: Fnl documented in this encounter Plan of Treatment Upcoming Encounters Date Type Department Care Team (Late st Contact Info) Description 01/07/2025 9:00 AM NEURODIAGNOSTIC TECHNICIAN Appointment Department of Laboratory Medicine in [place], [place] [address] [place] [address] Celina Kitchen APRN, C.N.P., D.N.P. [address] [place] [phone] 01/17/2025 11:30 AM NEURODIAGNOSTIC TECHNICIAN Appointment Department of Radiation Oncology in [place], [place] [address] [place] [phone] Dru Rain M.D. [address] [place] [phone] documented as of this encounter Visit Diagnoses Not on filedocumented in this encounter Additional Health Concerns Infection Onset Date Last Indicated Resolved Time COVID19 Pending 09/01/2021 09/02/2021 09/02/2021 1 1:07 PM CDT COVID19 Pending 01/17/2022 01/18/2022 01/18/2022 1 1:54 PM NEURODIAGNOSTIC TECHNICIAN Assessment Noted Time PHQ-9 Depression Total Score: 2 06/23/20 14 2:01 PM CDT documented as of this encounter Care Teams Classifications Officer Cc/Cm Relationship Specialty Start Date End Date None Reported, Pcp PCP - General Family Medicine 06/16/24 documented as of this encounter
--- OUTSIDE RECORDS SUMMARY | 2024-12-03 19:31 | XMS_ITS | Encounter Summary ---
Author Organization [facility] Address [address] [place] [address] Care Team Providers Care [facility] Name Role Phone None Reported, Pcp Primary Care Provider Unavail able Encounter Details Date Type Department Care Team (Late st Contact Info) Description 02/04/2017 Historical Ophthalmology [facility] Damir Robles Jr., M.D. [address] [phone] Social History Tobacco Use Types Packs/Day Years Used Date Smoking Tobacco: Former Sex and Gender Information Value Date Recorded Sex Assigned at Male 07/29/2022 7:05 PM CDT Legal Sex Male 6:01 AM FAMILY SPECIALIST Gender Identity Male 10/08/2020 6:43 AM FAMILY SPECIALIST Sexual Orientation Straight 10/08/2020 6: 43 AM FAMILY SPECIALIST documented as of this encounter Progress Notes * Damir Robles M.D. - 02/04/2017 3:14 PM CDT Eye General CHIEF COMPLAINT Cataract Consult (Dr Pacheco Pt) HISTORY OF PRESENT ILLNESS Pt states that over the past 1 year he has noticed that his distance vision has decreased. Having a hard time judging when he drives. Unsure which eye is worse, feels they are both bad. IMPRESSION / REPORT / PLAN #1 Clinically signifcant cataract ou Trouble with vision for all activities, glare RB discussed, IC given OK to proceed A scan DIAGNOSIS #1 Clinically signifcant cataract ou CDM Reports - EYEGEN Id: [id number] Status: Fnl documented in this encounter Plan of Treatment Upcoming Encounters Date Type Department Care Team (Late st Contact Info) Description 01/07/2025 9:00 AM FAMILY SPECIALIST Appointment Department of Laboratory Medicine in [place], [place] [address] [place] [address] Celian Kitchen APRN, C.N.P., D.N.P. [address] [place] [phone] 01/17/2025 11:30 AM FAMILY SPECIALIST Appointment Department of Radiation Oncology in [place], [place] [address] [place] [phone] Dru Rain M.D. [address] [place] [phone] documented as of this encounter Visit Diagnoses Not on filedocumented in this encounter Additional Health Concerns Infection Onset Date Last Indicated Resolved Time COVID19 Pending 09/01/2021 09/02/2021 09/02/2021 1 1:07 PM CDT COVID19 Pending 01/17/2022 01/18/2022 01/18/2022 1 1:54 PM FAMILY SPECIALIST Assessment Noted Time PHQ-9 Depression Total Score: 2 06/23/20 14 2:01 PM CDT documented as of this encounter Care Teams [facility] Relationship Specialty Start Date End Date None Reported, Pcp PCP - General Family Medicine 06/16/24 documented as of this encounter
--- OUTSIDE RECORDS SUMMARY | 2024-12-03 19:31 | XMS_ITS | Encounter Summary ---
Author Organization [facility] Address [address] [place] [address] Care Team Providers Care Sprinkler Truck Driver Name Role Phone None Reported, Pcp Primary Care Provider Unavail able Encounter Details Date Type Department Care Team (Late Contact Info) Description 03/13/2017 Historical Ophthalmology [facility] Damir Robles Jr., M.D. [address] [address] Social History Tobacco Use Types Packs/Day Years Used Date Smoking Tobacco: Former Sex and Gender Information Value Date Recorded Sex Assigned at Male 07/29/2022 7:05 PM CDT Legal Sex Male 6:01 AM VIDEO PRODUCTION INTERN Gender Identity Male 10/08/2020 6:43 AM VIDEO PRODUCTION INTERN Sexual Orientation Straight 10/08/2020 6: 43 AM VIDEO PRODUCTION INTERN documented as of this encounter Progress Notes * Damir Robles M.D. - 03/13/2017 7:25 AM CDT Eye General CHIEF COMPLAINT 1 dy post op cataract surgery Rt eye HISTORY OF PRESENT ILLNESS Pt. denies any pain to the eye IMPRESSION / REPORT / PLAN #1 s/p KPE with IOL OD Doing well Taper meds Symfony MF RTo 1 week DIAGNOSIS #1 s/p KPE with IOL OD CDM Reports - EYEGEN Id: [id number] Status: Fnl documented in this encounter Plan of Treatment Upcoming Encounters Date Type Department Care Team (Late Contact Info) Description 01/07/2025 9:00 AM VIDEO PRODUCTION INTERN Appointment Department of Laboratory Medicine in [place], [place] [address] [place] [address] Celina Kitchen APRN, C.N.P., D.N.P. [address] [place] [address] 01/17/2025 11:30 AM VIDEO PRODUCTION INTERN Appointment Department of Radiation Oncology in [place], [place] [address] [place] [phone] Dru Rain M.D. [address] [place] [address] documented as of this encounter Visit Diagnoses Not on filedocumented in this encounter Additional Health Concerns Infection Onset Date Last Indicated Resolved Time COVID19 Pending 09/01/2021 09/02/2021 09/02/2021 1 1:07 PM CDT COVID19 Pending 01/17/2022 01/18/2022 01/18/2022 1 1:54 PM VIDEO PRODUCTION INTERN Assessment Noted Time PHQ-9 Depression Total Score: 2 06/23/20 14 2:01 PM CDT documented as of this encounter Care Teams Sprinkler Truck Driver Relationship Specialty Start Date End Date None Reported, Pcp PCP - General Family Medicine 06/16/24 documented as of this encounter
--- OUTSIDE RECORDS SUMMARY | 2024-12-03 19:31 | XMS_ITS | Encounter Summary ---
Author Organization [facility] Address [address] [place] [address] Care Team Providers Care Rotary Surface Grinder Name Role Phone None Reported, Pcp Primary Care Provider Unavail able Encounter Details Date Type Department Care Team (Late st Contact Info) Description 03/19/2017 Historical Ophthalmology [facility] Damir Robles Jr., M.D. [address] [address] Social History Tobacco Use Types Packs/Day Years Used Date Smoking Tobacco: Former Sex and Gender Information Value Date Recorded Sex Assigned at Male 07/29/2022 7:05 PM CDT Legal Sex Male 6:01 AM GARNETT FEEDER Gender Identity Male 10/08/2020 6:43 AM GARNETT FEEDER Sexual Orientation Straight 10/08/2020 6: 43 AM GARNETT FEEDER documented as of this encounter Progress Notes * Damir Robles M.D. - 03/19/2017 1:41 PM CDT Eye General CHIEF COMPLAINT 1wk PO KPE IOL Rt symfony MF 03/12/17 HISTORY OF PRESENT ILLNESS Pt states no pain or discomfort. States near vision still not clear. Can read books but the newspaper is challenging. IMPRESSION / REPORT / PLAN #1 s/p KPE with IOL OD Doing well Taper meds Symfony MF OU RTo 3 weeks DIAGNOSIS #1 s/p KPE with IOL OD CDM Reports - EYEGEN Id: [id number] Status: Fnl documented in this encounter Plan of Treatment Upcoming Encounters Date Type Department Care Team (Late st Contact Info) Description 01/07/2025 9:00 AM GARNETT FEEDER Appointment Department of Laboratory Medicine in [place], [place] [address] [place] [phone] Celina Kitchen APRN, C.N.P., D.N.P. [address] [place] [address] 01/17/2025 11:30 AM GARNETT FEEDER Appointment Department of Radiation Oncology in [place], [place] [address] [place] [address] Dru Rain M.D. [address] [place] [address] documented as of this encounter Visit Diagnoses Not on filedocumented in this encounter Additional Health Concerns Infection Onset Date Last Indicated Resolved Time COVID19 Pending 09/01/2021 09/02/2021 09/02/2021 1 1:07 PM CDT COVID19 Pending 01/17/2022 01/18/2022 01/18/2022 1 1:54 PM GARNETT FEEDER Assessment Noted Time PHQ-9 Depression Total Score: 2 06/23/20 14 2:01 PM CDT documented as of this encounter Care Teams Rotary Surface Grinder Relationship Specialty Start Date End Date None Reported, Pcp PCP - General Family Medicine 06/16/24 documented as of this encounter
[2024-12-03] MEDS: TRAMADOL HCL 50 MG TABLET PO (19:34)
[2024-12-03] MEDS: predniSONE 20 MG TABLET 40 MG PO (19:34)
[2024-12-03] MEDS: CYCLOBENZAPRINE HCL 10 MG TABLET 5 MG PO (19:34)
[2024-12-03] MEDS: KETOROLAC 10 MG TABLET PO (19:34)
== END 2024-12-03 19:47 | disposition home or self-care (01) ==
LOC: ED 19:27
PROVIDERS: Emergency Provider Family Medicine
DX: S39.012A Strain of muscle, fascia and tendon of lower back, initial encounter (principal)
CPT/HCPCS: 99283; A9270; J7512